=== PATIENT | female | born 1955 | race American Indian/Alaskan Native ===

== ENCOUNTER 2016-05-12 16:36 | Emergency (ER) | payer BC ==
[2016-05-12] MEDS ORDERED: ZOFRAN ODT PO ONE (16:48)
--- NOTE | 2016-05-12 16:51 | Emergency Department Report ---
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 PT states while at work last night she began to have n/v. pt states her stomach is sore from throwing up. PT has not tried to treat symptoms [employer] - ROS Review of Systems: + n/v pt denies abd pain, but states abd is sore pt denies hx of allergies - Exam Physical Exam: PT looks well, non toxic Pt's abd is soft and non tender at this time. pt has a steady gait and gcs 15 MSE screening note: Focused history and physical exam performed. Due to findings the following was ordered: labs, meds ED Disposition for MSE Condition: Stable
[2016-05-12 17:28] LABS: Basophils % (Auto) 0.9 % (0.0-1.8); Hematocrit 43.6 % (30.3-42.9); Mean Corpuscular HGB Conc 32 % (30-34); Mean Corpuscular Volume 81 fl (79-97); Platelet Count 233 K/mm3 (140-440); Red Blood Count 5.41 M/mm3 (3.65-5.03); Red Cell Distribution Width 14.9 % (13.2-15.2); White Blood Count 6.2 K/mm3 (4.5-11.0)
[2016-05-12 17:29] LABS: Mean Corpuscular Hemoglobin 26 pg (28-32)
[2016-05-12] MEDS ORDERED: NACL 0.9% 1000 ML 1,000 ML IV ONE (17:35)
[2016-05-12] MEDS ORDERED: ZOFRAN IV ONE (17:41)
[2016-05-12 17:50] LABS: Alanine Aminotransferase 31 units/L (7-56); Albumin 4.3 g/dL (3.9-5); Albumin/Globulin Ratio 1.2 %; Alkaline Phosphatase 110 units/L (35-129); Anion Gap 18 mmol/L; BUN/Creatinine Ratio 15.45; Bilirubin,Total 0.5 mg/dL (0.1-1.2); Blood Urea Nitrogen 17 mg/dL (7-17); Calcium 11.2 mg/dL (8.4-10.2); Carbon Dioxide 25 mmol/L (22-30); Chloride 100.8 mmol/L (98-107); Glucose 123 mg/dL (65-100); Lipase 21 units/L (13-60); Potassium 3.7 mmol/L (3.6-5.0); Sodium 140 mmol/L (137-145)
[2016-05-12] MEDS ORDERED: TORADOL ONE (17:57)
[2016-05-12] MEDS ORDERED: TORADOL IV ONE (18:16)
[2016-05-12] MEDS ORDERED: NORMODYNE IV ONE ×2 (19:11→19:58)
[2016-05-12] MEDS ORDERED: MORPHINE IV ONE (19:20)
--- NOTE | 2016-05-12 19:56 | Emergency Department Report ---
HPI - General Chief Complaint: Pain General Time Seen by Provider: 05/12/16 16:47 - HPI HPI: This is a 61-year-old Afro-[place] female presents the emergency department from home with complaint of generalized body aches, left ear pain, and nausea and vomiting this been going on since last night. The patient took some Motrin for her symptoms with some transient relief. Chest complains of some subjective fever with intermittent chills and sweats. No recent travel or sick contacts at home. Her primary care doctor is Dr. Wally Miranda. She has a history of coronary artery disease with [place] 2, hypertension, hypothyroidism. She denies any chest pain, shortness of breath, cough, diarrhea or rash. ED Past Medical Hx - Past Medical History Previous Medical History?: Yes Hx Hypertension: Yes Hx Heart Attack/AMI: Yes (2) Hx Renal Disease: Yes (renal insufficiency) Additional medical history: Hypothyroid - Surgical History Past Surgical History?: Yes Hx Coronary Stent: Yes Hx Cholecystectomy: Yes Additional Surgical History: c-sect. - Social History Smoking Status: Current Every Day Smoker Substance Use Type: Prescribed - Medications Home Medications: Home Medications Medication Instructions Recorded Confirmed Last Taken Type Potassium Chloride [K-Dur] 20 meq PO QDAY #30 tablet 08/25/13 05/12/16 1 Day Ago Rx Aspirin [Aspirin TAB] 325 mg PO QDAY #30 tablet 01/03/15 05/12/16 1 Day Ago Rx AtorvaSTATin [Lipitor] 20 mg PO QHS #30 tablet 01/03/15 05/12/16 1 Day Ago Rx Levothyroxine [Synthroid] 100 mcg PO DAILY@0600 #30 tablet 01/03/15 05/12/16 1 Day Ago Rx Metoprolol [Lopressor TAB] 100 mg PO TID #90 tablet 01/03/15 05/12/16 1 Day Ago Rx HYDROcodone/APAP 5-325 [[place] 1 each PO Q6HR PRN #10 tablet 05/12/16 Unknown Rx 5/325] Ondansetron [Zofran Odt] 4 mg PO Q8HR PRN #10 tab.rapdis 05/12/16 Unknown Rx ED Review of Systems ROS: Stated complaint: LT EAR PAIN/VOMITTING /BODY ACHES Other details as noted in HPI Comment: All other systems reviewed and negative Constitutional: chills, fever (subjective) Eyes: denies: eye pain, eye discharge, vision change ENT: denies: ear pain, throat pain Respiratory: denies: cough, shortness of breath, wheezing Cardiovascular: denies: chest pain, palpitations Gastrointestinal: nausea, vomiting Genitourinary: denies: urgency, dysuria, discharge Musculoskeletal: myalgia. denies: joint swelling Skin: denies: rash, lesions Neurological: denies: headache, weakness, paresthesias Physical Exam - Physical Exam Vital Signs: Vital Signs 05/12/16 05/12/16 05/12/16 16:53 17:22 17:30 Temperature 98.8 F Pulse Rate 89 79 73 Respiratory 20 15 14 Rate Blood Pressure 194/137 188/119 Blood Pressure [Right] O2 Sat by Pulse 98 98 Oximetry 05/12/16 05/12/16 05/12/16 17:35 17:40 17:50 Temperature Pulse Rate 81 80 75 Respiratory 18 16 18 Rate Blood Pressure 188/119 188/119 Blood Pressure 188/119 [Right] O2 Sat by Pulse 100 98 98 Oximetry 05/12/16 05/12/16 05/12/16 18:02 18:36 18:42 Temperature Pulse Rate 80 Respiratory 21 Rate Blood Pressure 188/119 188/119 184/102 Blood Pressure [Right] O2 Sat by Pulse 85 91 Oximetry 05/12/16 05/12/16 05/12/16 18:50 18:52 19:00 Temperature 99.2 F Pulse Rate 85 87 71 Respiratory 29 H 16 18 Rate Blood Pressure 185/106 184/102 Blood Pressure 184/102 [Right] O2 Sat by Pulse 99 86 Oximetry 05/12/16 05/12/16 05/12/16 19:10 19:20 19:30 Temperature Pulse Rate 88 95 H 93 H Respiratory 16 17 17 Rate Blood Pressure 184/102 181/115 195/123 Blood Pressure [Right] O2 Sat by Pulse 94 94 96 Oximetry Physical Exam: GENERAL: The patient is well-developed well-nourished. HEENT: Normocephalic. Atraumatic. Extraocular motions are intact. Patient has moist mucous membranes. Pupils equal reactive to light bilaterally. Oropharynx is clear. Normal bilateral tympanic membranes and external ear canals. NECK: Supple. Trachea is midline. CHEST/LUNGS: Clear to auscultation. There is no respiratory distress noted. HEART/CARDIOVASCULAR: Regular. There is no tachycardia. There is no gallop rub or murmur. ABDOMEN: Abdomen is soft, nontender. Patient has normal bowel sounds. There is no abdominal distention. SKIN: There is no rash. There is no edema. There is no diaphoresis. NEURO: The patient is awake, alert, and oriented. The patient is cooperative. The patient has no focal neurologic deficits. The patient has normal speech. MUSCULOSKELETAL: There is no tenderness or deformity. There is no limitation range of motion. There is no evidence of acute injury. ED Course Vital Signs 05/12/16 05/12/16 05/12/16 16:53 17:22 17:30 Temperature 98.8 F Pulse Rate 89 79 73 Respiratory 20 15 14 Rate Blood Pressure 194/137 188/119 Blood Pressure [Right] O2 Sat by Pulse 98 98 Oximetry 05/12/16 05/12/16 05/12/16 17:35 17:40 17:50 Temperature Pulse Rate 81 80 75 Respiratory 18 16 18 Rate Blood Pressure 188/119 188/119 Blood Pressure 188/119 [Right] O2 Sat by Pulse 100 98 98 Oximetry 05/12/16 05/12/16 05/12/16 18:02 18:36 18:42 Temperature Pulse Rate 80 Respiratory 21 Rate Blood Pressure 188/119 188/119 184/102 Blood Pressure [Right] O2 Sat by Pulse 85 91 Oximetry 05/12/16 05/12/16 05/12/16 18:50 18:52 19:00 Temperature 99.2 F Pulse Rate 85 87 71 Respiratory 29 H 16 18 Rate Blood Pressure 185/106 184/102 Blood Pressure 184/102 [Right] O2 Sat by Pulse 99 86 Oximetry 05/12/16 05/12/16 05/12/16 19:10 19:20 19:30 Temperature Pulse Rate 88 95 H 93 H Respiratory 16 17 17 Rate Blood Pressure 184/102 181/115 195/123 Blood Pressure [Right] O2 Sat by Pulse 94 94 96 Oximetry ED Medical Decision Making - Lab Data Result diagrams: 05/12/16 17:13 05/12/16 17:12 - EKG Data -: EKG Interpreted by Al EKG shows normal: sinus rhythm, axis (LAD), intervals, QRS complexes (anterior fascicular block, LVH), ST-T waves (T-wave flattening) Rate: normal - EKG Data When compared to previous EKG there are: previous EKG unavailable Interpretation: other (sinus rhythm, left axis deviation, left anterior fascicular block, LVH) - Medical Decision Making Is a 61-year-old Afro-[place] female who presents the emergency department with a one-day history of generalized body aches, nausea and vomiting. She denies any chest pain, shortness of breath, cough, fever but does have a slight headache at first. Patient was given some IV fluid resuscitation, Zofran and some Toradol. Upon reevaluation all of these symptoms have resolved except for the body aches. Patient still remains with some hypertensive issues. Required 2 doses of labetalol but eventually her blood pressure came down to a more reasonable level. Her EKG does not show any signs of ST elevation AZ or dysrhythmia. The patient otherwise has mostly unremarkable as. There is no leukocytosis, elect light abnormalities, renal insufficiency or glucose abnormalities. She has normal belly labs. Patient has good follow-up with primary care. She will go home with Zofran for nausea so she can stay hydrated and some pain medication for her bodyaches. She'll return to the ER with any worsening of her symptoms or any acute distress. - Differential Diagnosis influenza, food poisoning, viral syndrome Critical Care Time: No Critical care attestation.: If time is entered above; I have spent that time in minutes in the direct care of this critically ill patient, excluding procedure time. ED Disposition Clinical Impression: Otalgia of left ear, Body aches, Hypertensive urgency Nausea and vomiting Qualifiers: Vomiting type: unspecified Vomiting Intractability: non-intractable Qualified Code(s): R11.2 - Nausea with vomiting, unspecified Disposition: DISCHARGED TO HOME OR SELFCARE Is pt being admited?: No Condition: Stable Instructions: Hypertension (ED), Acute Nausea and Vomiting (ED), Dehydration ( ED) Additional Instructions: Please try to stay away from foods are high in salt and caffeinated products to help with your blood pressure. Keep a blood pressure log. Try to increase her oral rehydration. Follow up with your primary care doctor the next few days. Return to the emergency department with any worsening of your symptoms or any acute distress. You've been prescribed a medication that is sedating. Therefore this medication cannot be mixed with alcohol, or taken prior to driving, working, or being responsible for children. Prescriptions: HYDROcodone/APAP 5-325 [[place] 5/325] 1 each PO Q6HR PRN #10 tablet PRN Reason: Pain Ondansetron [Zofran Odt] 4 mg PO Q8HR PRN #10 tab.rapdis PRN Reason: Nausea Referrals: PRIMARY CARE, [Primary Care Provider] - 3-5 Days Time of Disposition: 20:17
[2016-05-12 20:39] VITALS: BP 175/118
== END 2016-05-12 20:48 | disposition home or self-care (01) ==
LOC: ED 16:36
DX: M79.1 Myalgia (principal); I10 Essential (primary) hypertension; H92.02 Otalgia, left ear; R11.2 Nausea with vomiting, unspecified; I25.2 Old myocardial infarction; N28.9 Disorder of kidney and ureter, unspecified; E03.9 Hypothyroidism, unspecified; F17.200 Nicotine dependence, unspecified, uncomplicated; Z79.82 Long term (current) use of aspirin
CPT/HCPCS: 36415; 80053; 83690; 84484; 85025; 87400; 93005; 93010; 96361; 96374; 96375; 96376; 99283; J1885; J2270; J2405; J7030

== ENCOUNTER 2016-05-13 06:25 | Emergency (ER) | payer BC ==
[2016-05-13 08:21] LABS: Basophils % (Auto) 0.5 % (0.0-1.8); Eosinophils % (Auto) 0.1 % (0.0-4.3); Hematocrit 41.4 % (30.3-42.9); Hemoglobin 13.3 gm/dl (10.1-14.3); Mean Corpuscular HGB Conc 32 % (30-34); Mean Corpuscular Volume 81 fl (79-97); Platelet Count 196 K/mm3 (140-440); Red Blood Count 5.14 M/mm3 (3.65-5.03); Red Cell Distribution Width 15.3 % (13.2-15.2); White Blood Count 8.8 K/mm3 (4.5-11.0)
[2016-05-13 08:24] LABS: Mean Corpuscular Hemoglobin 26 pg (28-32)
[2016-05-13 08:38] LABS: BUN/Creatinine Ratio 15.83; Calcium 10.9 mg/dL (8.4-10.2); Chloride 102.4 mmol/L (98-107); Potassium 3.3 mmol/L (3.6-5.0)
[2016-05-13] MEDS ORDERED: NACL 0.9% 1000 ML IV ONE (08:47)
[2016-05-13] MEDS ORDERED: DILAUDID IV ONE (08:47)
[2016-05-13] MEDS ORDERED: REGLAN IV ONE (08:47)
[2016-05-13 09:06] LABS: Bilirubin,Urine NEG (Negative); Blood,Urine NEG (Negative); Ketones,Urine NEG (Negative); Leukocyte Esterase,Urine NEG (Negative); Mucus,Urine FEW /HPF; Nitrite,Urine NEG (Negative); Urobilinogen,Urine < 2.0 mg/dL (<2.0)
[2016-05-13 09:20] LABS: Protein,Urine >500 mg/dL (Negative)
[2016-05-13 09:54] VITALS: BP 178/99
[2016-05-13] MEDS ORDERED: K-DUR PO ONE (10:34)
--- NOTE | 2016-05-13 10:57 | Emergency Department Report ---
HPI - General Chief Complaint: Nausea/Vomiting/Diarrhea Time Seen by Provider: 05/13/16 08:23 - HPI HPI: Chief complaint: Vomiting and back pain HPI: Patient is a 61-year-old female with history of chronic back pain radiating down her right leg who is in pain management who presents today with exacerbation of her back pain and nausea and vomiting. Patient was seen here yesterday and medicated with improvement states that when she went home she vomited all night and Zofran was no help. Patient has not had a fever or any diarrhea. Patient does complain of body aches. Mode of arrival: private car Source: Patient old chart Began: 2 days ago Duration: See above Context: See above Quality: Sharp Severity: 10 out of 10 Improved with: Nothing Worsened with: Movement and walking worsened since her pain eating worsens or vomiting Associated signs and symptoms: See above ED Past Medical Hx - Past Medical History Previous Medical History?: Yes Hx Hypertension: Yes Hx Heart Attack/AMI: Yes (2) Hx Renal Disease: Yes (renal insufficiency) Additional medical history: Hypothyroid - Surgical History Past Surgical History?: Yes Hx Coronary Stent: Yes Hx Cholecystectomy: Yes Additional Surgical History: c-sect. - Social History Smoking Status: Never Smoker Substance Use Type: None - Medications Home Medications: Home Medications Medication Instructions Recorded Confirmed Last Taken Type Potassium Chloride [K-Dur] 20 meq PO QDAY #30 tablet 08/25/13 05/12/16 1 Day Ago Rx Aspirin [Aspirin TAB] 325 mg PO QDAY #30 tablet 01/03/15 05/12/16 1 Day Ago Rx AtorvaSTATin [Lipitor] 20 mg PO QHS #30 tablet 01/03/15 05/12/16 1 Day Ago Rx Levothyroxine [Synthroid] 100 mcg PO DAILY@0600 #30 tablet 01/03/15 05/12/16 1 Day Ago Rx Metoprolol [Lopressor TAB] 100 mg PO TID #90 tablet 01/03/15 05/12/16 1 Day Ago Rx HYDROcodone/APAP 5-325 [[place] 1 each PO Q6HR PRN #10 tablet 05/12/16 Unknown Rx 5/325] Ondansetron [Zofran Odt] 4 mg PO Q8HR PRN #10 tab.rapdis 05/12/16 Unknown Rx Metoclopramide [Reglan] 10 mg PO Q6H PRN #10 tab 05/13/16 Unknown Rx ED Review of Systems ROS: Stated complaint: BODY PAIN Other details as noted in HPI ROS Constitutional: No fever ENT: No uri symptoms Cardiovascular: No chest pain Respiratory: No sob or cough GI: No diarrhea : No dysuria frequency or urgency, Skin: No rash Neuro: No focal weakness or numbness Psych: No depression Derek/lymph: No edema Physical Exam - Physical Exam Vital Signs: Vital Signs 05/13/16 05/13/16 05/13/16 06:48 06:50 06:52 Temperature Pulse Rate Respiratory Rate Blood Pressure 186/104 186/104 186/104 Blood Pressure [Left] O2 Sat by Pulse 97 96 Oximetry 05/13/16 05/13/16 05/13/16 06:54 06:56 06:58 Temperature Pulse Rate Respiratory Rate Blood Pressure 186/104 186/104 186/104 Blood Pressure [Left] O2 Sat by Pulse 96 98 98 Oximetry 05/13/16 05/13/16 05/13/16 07:00 07:02 07:04 Temperature Pulse Rate Respiratory Rate Blood Pressure 174/112 174/112 174/112 Blood Pressure [Left] O2 Sat by Pulse 96 100 98 Oximetry 05/13/16 05/13/16 05/13/16 07:06 07:08 07:10 Temperature Pulse Rate Respiratory Rate Blood Pressure 174/112 174/112 174/112 Blood Pressure [Left] O2 Sat by Pulse 100 98 96 Oximetry 05/13/16 05/13/16 05/13/16 07:14 08:02 08:04 Temperature 98.2 F Pulse Rate 97 H Respiratory 22 Rate Blood Pressure 186/104 188/106 188/106 Blood Pressure [Left] O2 Sat by Pulse 96 96 95 Oximetry 05/13/16 05/13/16 05/13/16 08:06 08:08 08:10 Temperature Pulse Rate Respiratory Rate Blood Pressure 188/106 188/106 188/106 Blood Pressure [Left] O2 Sat by Pulse 94 94 94 Oximetry 05/13/16 05/13/16 05/13/16 08:12 08:14 08:16 Temperature Pulse Rate Respiratory Rate Blood Pressure 188/106 188/106 188/106 Blood Pressure [Left] O2 Sat by Pulse 94 96 97 Oximetry 05/13/16 05/13/16 05/13/16 08:18 08:20 08:22 Temperature Pulse Rate Respiratory Rate Blood Pressure 188/106 188/106 188/106 Blood Pressure [Left] O2 Sat by Pulse 98 98 98 Oximetry 05/13/16 05/13/16 05/13/16 08:23 08:33 08:34 Temperature Pulse Rate Respiratory Rate Blood Pressure 188/106 200/104 200/104 Blood Pressure [Left] O2 Sat by Pulse 99 99 99 Oximetry 05/13/16 05/13/16 05/13/16 08:36 08:38 08:40 Temperature Pulse Rate Respiratory Rate Blood Pressure 200/104 200/104 200/104 Blood Pressure [Left] O2 Sat by Pulse 99 94 97 Oximetry 05/13/16 05/13/16 05/13/16 08:42 08:44 08:46 Temperature Pulse Rate Respiratory Rate Blood Pressure 200/104 200/104 200/104 Blood Pressure [Left] O2 Sat by Pulse 98 97 97 Oximetry 05/13/16 05/13/16 05/13/16 08:48 08:50 08:52 Temperature Pulse Rate Respiratory Rate Blood Pressure 200/104 200/104 200/104 Blood Pressure [Left] O2 Sat by Pulse 99 96 98 Oximetry 05/13/16 05/13/16 05/13/16 08:54 08:56 08:58 Temperature Pulse Rate Respiratory Rate Blood Pressure 200/104 200/104 200/104 Blood Pressure [Left] O2 Sat by Pulse 95 98 99 Oximetry 05/13/16 05/13/16 05/13/16 09:00 09:02 09:04 Temperature Pulse Rate 105 H Respiratory Rate Blood Pressure 205/104 205/104 205/104 Blood Pressure 205/104 [Left] O2 Sat by Pulse 95 99 97 Oximetry 05/13/16 05/13/16 05/13/16 09:06 09:08 09:10 Temperature Pulse Rate Respiratory Rate Blood Pressure 205/104 205/104 205/104 Blood Pressure [Left] O2 Sat by Pulse 92 94 82 L Oximetry 05/13/16 05/13/16 05/13/16 09:12 09:14 09:16 Temperature Pulse Rate Respiratory Rate Blood Pressure 205/104 205/104 205/104 Blood Pressure [Left] O2 Sat by Pulse 86 92 91 Oximetry 05/13/16 05/13/16 05/13/16 09:18 09:20 09:22 Temperature Pulse Rate Respiratory Rate Blood Pressure 200/104 200/104 200/104 Blood Pressure [Left] O2 Sat by Pulse 90 90 90 Oximetry 05/13/16 05/13/16 05/13/16 09:24 09:26 09:28 Temperature Pulse Rate Respiratory Rate Blood Pressure 200/104 200/104 200/104 Blood Pressure [Left] O2 Sat by Pulse 91 91 92 Oximetry 05/13/16 05/13/16 05/13/16 09:30 09:32 09:34 Temperature Pulse Rate Respiratory Rate Blood Pressure 203/123 203/123 203/123 Blood Pressure [Left] O2 Sat by Pulse 90 93 92 Oximetry 05/13/16 05/13/16 05/13/16 09:36 09:38 09:40 Temperature Pulse Rate Respiratory Rate Blood Pressure 203/123 203/123 203/123 Blood Pressure [Left] O2 Sat by Pulse 96 90 90 Oximetry 05/13/16 05/13/16 05/13/16 09:42 09:43 09:44 Temperature Pulse Rate Respiratory 18 Rate Blood Pressure 203/123 203/123 Blood Pressure [Left] O2 Sat by Pulse 94 99 90 Oximetry 05/13/16 09:45 Temperature Pulse Rate Respiratory Rate Blood Pressure 178/99 Blood Pressure [Left] O2 Sat by Pulse 95 Oximetry Physical Exam: GENERAL: The patient is well-developed well-nourished . HEENT: Normocephalic. Atraumatic. Extraocular motions are intact. Patient has moist mucous membranes. NECK: Supple. No meningitic signs are noted. There is no adenopathy noted. CHEST/LUNGS: Clear to auscultation. There is no respiratory distress noted. HEART/CARDIOVASCULAR: Regular. There is no tachycardia. There is no gallop rub or murmur. ABDOMEN: Abdomen is soft, nontender. Patient has normal bowel sounds. There is no abdominal distention. SKIN: There is no rash. There is no edema. There is no diaphoresis. NEURO: The patient is awake, alert, and oriented. The patient is cooperative. The patient has no focal neurologic deficits. The patient has normal speech. MUSCULOSKELETAL: There is tenderness to right buttocks into the right lateral thigh. There is no limitation range of motion. There is no evidence of acute injury. ED Course Vital Signs 05/13/16 05/13/16 05/13/16 06:48 06:50 06:52 Temperature Pulse Rate Respiratory Rate Blood Pressure 186/104 186/104 186/104 Blood Pressure [Left] O2 Sat by Pulse 97 96 Oximetry 05/13/16 05/13/16 05/13/16 06:54 06:56 06:58 Temperature Pulse Rate Respiratory Rate Blood Pressure 186/104 186/104 186/104 Blood Pressure [Left] O2 Sat by Pulse 96 98 98 Oximetry 05/13/16 05/13/16 05/13/16 07:00 07:02 07:04 Temperature Pulse Rate Respiratory Rate Blood Pressure 174/112 174/112 174/112 Blood Pressure [Left] O2 Sat by Pulse 96 100 98 Oximetry 05/13/16 05/13/16 05/13/16 07:06 07:08 07:10 Temperature Pulse Rate Respiratory Rate Blood Pressure 174/112 174/112 174/112 Blood Pressure [Left] O2 Sat by Pulse 100 98 96 Oximetry 05/13/16 05/13/16 05/13/16 07:14 08:02 08:04 Temperature 98.2 F Pulse Rate 97 H Respiratory 22 Rate Blood Pressure 186/104 188/106 188/106 Blood Pressure [Left] O2 Sat by Pulse 96 96 95 Oximetry 05/13/16 05/13/16 05/13/16 08:06 08:08 08:10 Temperature Pulse Rate Respiratory Rate Blood Pressure 188/106 188/106 188/106 Blood Pressure [Left] O2 Sat by Pulse 94 94 94 Oximetry 05/13/16 05/13/16 05/13/16 08:12 08:14 08:16 Temperature Pulse Rate Respiratory Rate Blood Pressure 188/106 188/106 188/106 Blood Pressure [Left] O2 Sat by Pulse 94 96 97 Oximetry 05/13/16 05/13/16 05/13/16 08:18 08:20 08:22 Temperature Pulse Rate Respiratory Rate Blood Pressure 188/106 188/106 188/106 Blood Pressure [Left] O2 Sat by Pulse 98 98 98 Oximetry 05/13/16 05/13/16 05/13/16 08:23 08:33 08:34 Temperature Pulse Rate Respiratory Rate Blood Pressure 188/106 200/104 200/104 Blood Pressure [Left] O2 Sat by Pulse 99 99 99 Oximetry 05/13/16 05/13/16 05/13/16 08:36 08:38 08:40 Temperature Pulse Rate Respiratory Rate Blood Pressure 200/104 200/104 200/104 Blood Pressure [Left] O2 Sat by Pulse 99 94 97 Oximetry 05/13/16 05/13/16 05/13/16 08:42 08:44 08:46 Temperature Pulse Rate Respiratory Rate Blood Pressure 200/104 200/104 200/104 Blood Pressure [Left] O2 Sat by Pulse 98 97 97 Oximetry 05/13/16 05/13/16 05/13/16 08:48 08:50 08:52 Temperature Pulse Rate Respiratory Rate Blood Pressure 200/104 200/104 200/104 Blood Pressure [Left] O2 Sat by Pulse 99 96 98 Oximetry 05/13/16 05/13/16 05/13/16 08:54 08:56 08:58 Temperature Pulse Rate Respiratory Rate Blood Pressure 200/104 200/104 200/104 Blood Pressure [Left] O2 Sat by Pulse 95 98 99 Oximetry 05/13/16 05/13/16 05/13/16 09:00 09:02 09:04 Temperature Pulse Rate 105 H Respiratory Rate Blood Pressure 205/104 205/104 205/104 Blood Pressure 205/104 [Left] O2 Sat by Pulse 95 99 97 Oximetry 05/13/16 05/13/16 05/13/16 09:06 09:08 09:10 Temperature Pulse Rate Respiratory Rate Blood Pressure 205/104 205/104 205/104 Blood Pressure [Left] O2 Sat by Pulse 92 94 82 L Oximetry 05/13/16 05/13/16 05/13/16 09:12 09:14 09:16 Temperature Pulse Rate Respiratory Rate Blood Pressure 205/104 205/104 205/104 Blood Pressure [Left] O2 Sat by Pulse 86 92 91 Oximetry 05/13/16 05/13/16 05/13/16 09:18 09:20 09:22 Temperature Pulse Rate Respiratory Rate Blood Pressure 200/104 200/104 200/104 Blood Pressure [Left] O2 Sat by Pulse 90 90 90 Oximetry 05/13/16 05/13/16 05/13/16 09:24 09:26 09:28 Temperature Pulse Rate Respiratory Rate Blood Pressure 200/104 200/104 200/104 Blood Pressure [Left] O2 Sat by Pulse 91 91 92 Oximetry 05/13/16 05/13/16 05/13/16 09:30 09:32 09:34 Temperature Pulse Rate Respiratory Rate Blood Pressure 203/123 203/123 203/123 Blood Pressure [Left] O2 Sat by Pulse 90 93 92 Oximetry 05/13/16 05/13/16 05/13/16 09:36 09:38 09:40 Temperature Pulse Rate Respiratory Rate Blood Pressure 203/123 203/123 203/123 Blood Pressure [Left] O2 Sat by Pulse 96 90 90 Oximetry 05/13/16 05/13/16 05/13/16 09:42 09:43 09:44 Temperature Pulse Rate Respiratory 18 Rate Blood Pressure 203/123 203/123 Blood Pressure [Left] O2 Sat by Pulse 94 99 90 Oximetry 05/13/16 09:45 Temperature Pulse Rate Respiratory Rate Blood Pressure 178/99 Blood Pressure [Left] O2 Sat by Pulse 95 Oximetry - Reevaluation(s) Reevaluation #1: 05/13/16 Patient medicated with Reglan, Dilaudid, saline with significant improvement. ED Medical Decision Making - Lab Data Result diagrams: 05/13/16 07:51 05/13/16 07:51 Critical care attestation.: If time is entered above; I have spent that time in minutes in the direct care of this critically ill patient, excluding procedure time. ED Disposition Clinical Impression: Nausea and vomiting Qualifiers: Vomiting type: unspecified Vomiting Intractability: non-intractable Qualified Code(s): R11.2 - Nausea with vomiting, unspecified Chronic pain Qualifiers: Chronic pain type: other chronic pain Qualified Code(s): G89.29 - Other chronic pain Sciatica Qualifiers: Laterality: right Qualified Code(s): M54.31 - Sciatica, right side Disposition: DISCHARGED TO HOME OR SELFCARE Is pt being admited?: No Does the pt Need Aspirin: No Condition: Stable Instructions: Acute Nausea and Vomiting (ED), Chronic Back Pain (ED) Prescriptions: Metoclopramide [Reglan] 10 mg PO Q6H PRN #10 tab PRN Reason: Nausea And Vomiting Referrals: PRIMARY CARE,MD [Primary Care Provider] - 3-5 Days Time of Disposition: 10:58
== END 2016-05-13 11:37 | disposition home or self-care (01) ==
LOC: ED 06:25
DX: R11.2 Nausea with vomiting, unspecified (principal); M54.31 Sciatica, right side; G89.29 Other chronic pain; I10 Essential (primary) hypertension; I25.2 Old myocardial infarction; N28.9 Disorder of kidney and ureter, unspecified; E03.9 Hypothyroidism, unspecified; Z95.9 Presence of cardiac and vascular implant and graft, unspecified; Z90.49 Acquired absence of other specified parts of digestive tract; Z79.82 Long term (current) use of aspirin; Z91.048 Other nonmedicinal substance allergy status
CPT/HCPCS: 36415; 80048; 81001; 82962; 85025; 96361; 96374; 96375; 99284; J1170; J2765; J7030

== ENCOUNTER 2017-02-12 23:49 | Emergency (ER) | payer BC ==
[2017-02-12 23:58] VITALS: BP 134/86
[2017-02-13] MEDS ORDERED: COLCRYS PO ONE (00:08)
--- NOTE | 2017-02-13 00:26 | Emergency Department Report ---
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 She has a history of this and says it feels similar. She is requesting some colchicine to help with her discomfort. The patient has previous history of coronary artery disease with [place], some transient renal insufficiency and has hypertension. Her primary care physician is Dr. Wally Fox. She has not taken anything for her toe and/or foot discomfort so far. She feels that the foot is slightly swollen but she denies any skin color change. ED Past Medical Hx - Past Medical History Hx Hypertension: Yes Hx Heart Attack/AMI: Yes (2) Hx Renal Disease: Yes (renal insufficiency) Additional medical history: Hypothyroid - Surgical History Hx Coronary Stent: Yes Hx Cholecystectomy: Yes Additional Surgical History: c-sect. - Social History Smoking Status: Never Smoker Substance Use Type: None - Medications Home Medications: Home Medications Medication Instructions Recorded Confirmed Last Taken Type Potassium Chloride [K-Dur] 20 meq PO QDAY #30 tablet 08/25/13 05/12/16 1 Day Ago Rx ~05/11/16 Aspirin [Aspirin TAB] 325 mg PO QDAY #30 tablet 01/03/15 05/12/16 1 Day Ago Rx ~05/11/16 AtorvaSTATin [Lipitor] 20 mg PO QHS #30 tablet 01/03/15 05/12/16 1 Day Ago Rx ~05/11/16 Levothyroxine [Synthroid] 100 mcg PO DAILY@0600 #30 tablet 01/03/15 05/12/16 1 Day Ago Rx ~05/11/16 Metoprolol [Lopressor TAB] 100 mg PO TID #90 tablet 01/03/15 05/12/16 1 Day Ago Rx ~05/11/16 HYDROcodone/APAP 5-325 [[place] 1 each PO Q6HR PRN #10 tablet 05/12/16 Unknown Rx 5/325] Ondansetron [Zofran Odt] 4 mg PO Q8HR PRN #10 tab.rapdis 05/12/16 Unknown Rx Metoclopramide [Reglan] 10 mg PO Q6H PRN #10 tab 05/13/16 Unknown Rx ED Review of Systems ROS: Stated complaint: FOOT PAIN Other details as noted in HPI Comment: All other systems reviewed and negative Constitutional: denies: chills, fever Eyes: denies: eye pain, eye discharge, vision change ENT: denies: ear pain, throat pain Respiratory: denies: cough, shortness of breath, wheezing Cardiovascular: denies: chest pain, palpitations Genitourinary: denies: urgency, dysuria, discharge Musculoskeletal: arthralgia. denies: back pain Skin: denies: rash, lesions Neurological: denies: headache, weakness, paresthesias Physical Exam - Physical Exam Vital Signs: Vital Signs 02/12/17 02/12/17 23:54 23:58 Temperature 98.3 F Pulse Rate 73 Respiratory 14 14 Rate Blood Pressure 134/86 Blood Pressure 134/86 [Left] O2 Sat by Pulse 96 96 Oximetry Physical Exam: GENERAL: The patient is well-developed well-nourished. HENT: Normocephalic. Atraumatic. Patient has moist mucous membranes. EYES: Extraocular motions are intact. NECK: Supple. Trachea is midline. CHEST/LUNGS: Clear to auscultation. There is no respiratory distress noted. HEART/CARDIOVASCULAR: Regular. There is no tachycardia. There is no murmur. ABDOMEN: Abdomen is soft, nontender. SKIN: There is some mild warmth and mild nonpitting swelling to the left foot but no areas of erythema or fluctuance. NEURO: The patient is awake, alert, and oriented. The patient is cooperative. The patient has no focal neurologic deficits. The patient has normal speech. MUSCULOSKELETAL: Tenderness to palpation to the left great toe and dorsal foot.. There is no limitation range of motion. ED Course Vital Signs 02/12/17 02/12/17 23:54 23:58 Temperature 98.3 F Pulse Rate 73 Respiratory 14 14 Rate Blood Pressure 134/86 Blood Pressure 134/86 [Left] O2 Sat by Pulse 96 96 Oximetry ED Medical Decision Making - Medical Decision Making This patient has a history of gout and feels it is consistent with a gout flareup. 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 She has good follow-up with primary care. She was given a 1.2 mg dose of the colchicine and encouraged to follow up with PCP. She'll return with any worsening of her symptoms or any acute distress. - Differential Diagnosis gout, osteoarthritis, rheumatoid arthritis, plantar fasciitis Critical Care Time: No Critical care attestation.: If time is entered above; I have spent that time in minutes in the direct care of this critically ill patient, excluding procedure time. ED Disposition Clinical Impression: Gout Qualifiers: Gout site: foot Gout etiology: unspecified cause Chronicity: acute Laterality: left Qualified Code(s): M10.9 - Gout, unspecified Disposition: TO HOME OR SELFCARE Is pt being admited?: No Condition: Stable Instructions: Acute Gouty Arthritis (ED) Additional Instructions: Please follow-up with your primary care physician, Dr. Fox, as soon as possible regarding your gout flareup. Return to the emergency Department with any worsening of your symptoms or any acute distress. Referrals: FLACO FOX MD [Referring] - 3-5 Days Time of Disposition: 00:46
== END 2017-02-13 00:49 | disposition home or self-care (01) ==
LOC: ED 23:49
DX: M10.9 Gout, unspecified (principal); I10 Essential (primary) hypertension; I25.2 Old myocardial infarction
CPT/HCPCS: 99282

== ENCOUNTER 2020-06-16 16:44 | Emergency (ER) | payer BC, MEDICARE ==
[2020-06-16 16:49] VITALS: BP 187/111
== END 2020-06-16 18:48 | disposition left against medical advice (07) ==
LOC: ED 16:44
DX: G43.909 Migraine, unspecified, not intractable, without status migrainosus (principal); Z53.21 Procedure and treatment not carried out due to patient leaving prior to being seen by health care provider

== ENCOUNTER 2021-08-10 08:11 | Inpatient (IN) | payer MEDICARE ==
--- NOTE | 2021-08-10 09:23 | XRay Report ---
CHEST 2 VIEWS INDICATION / CLINICAL INFORMATION: CP. COMPARISON: 08/06/21 FINDINGS: SUPPORT DEVICES: None. HEART / MEDIASTINUM: Heart is upper normal size. Thoracic aorta is tortuous. No change. LUNGS / PLEURA: No significant pulmonary or pleural abnormality. No pneumothorax. ADDITIONAL FINDINGS: No significant additional findings. IMPRESSION: 1. No acute findings. No change. Signer Name: Wicho South MD Signed: 08/10/2021 9:18 AM Workstation Name: [id number]
[2021-08-10] MEDS ORDERED: fentaNYL 100 MCG/2 ML INJ IV ONE (11:53)
[2021-08-10] MEDS ORDERED: ONDANSETRON 4 MG/2 ML INJ IV ONE (11:53)
[2021-08-10] MEDS ORDERED: ASPIRIN 325 MG TAB PO ONE (11:54)
[2021-08-10] MEDS ORDERED: cloNIDine 0.2 MG TAB PO ONE (11:55)
--- NOTE | 2021-08-10 12:12 | Emergency Department Report ---
HPI - General Chief Complaint: Chest Pain Time Seen by Provider: 08/10/21 11:33 - HPI HPI: Room 7 The patient is a 66-year-old female present with a chief complaint of chest pain and right hip pain. The patient was admitted to this hospital 3 days ago for chest pain where she underwent a negative perfusion scan. Patient states her pain has not resolved since her discharge. Patient states she continues to have intermittent substernal chest pain described as a "hurt" in nature associated with nausea and some shortness of breath. Patient denies vomiting but admits to some pleurisy. Patient also complains of pain in her right hip from sciatica. Patient denies history of cough and states she has been fully vaccinated against COVID receiving 3 doses ED Past Medical Hx - Past Medical History Previous Medical History?: Yes Hx Hypertension: Yes Hx Heart Attack/AMI: Yes (2010, 2011) Hx Renal Disease: Yes (renal insufficiency) Additional medical history: fibroids. Gastric ulcer. Hyperlipidemia - Surgical History Past Surgical History?: Yes Hx Coronary Stent: Yes (x2) Hx Cholecystectomy: Yes Additional Surgical History: - Family History Family history: no significant - Social History Smoking Status: Former Smoker Substance Use Type: None - Medications Home Medications: Home Medications Medication Instructions Recorded Confirmed Last Taken Type HYDROcodone/APAP 5-325 [[place] 1 each PO Q6HR PRN #10 tablet 05/12/16 11/19/17 12/02/17 05:30 Rx 5-325 mg TAB] AtorvaSTATin [Lipitor] 80 mg PO QHS 11/19/17 12/02/17 12/01/17 History Levothyroxine [Synthroid] 100 mcg PO DAILY 11/19/17 11/19/17 12/02/17 05:30 History Metoprolol [Lopressor TAB] 100 mg PO BID 11/19/17 11/19/17 12/02/17 05:30 History cloNIDine HCL [Catapres] 0.3 mg PO BID #30 tablet 02/27/18 Unknown Rx Diclofenac 1% [Diclofenac 1% 1 applic TP QID PRN #1 tube 08/18/19 Unknown Rx topical gel] Aspirin EC [Halfprin EC] 81 mg PO QDAY 30 Days #30 tablet 12/23/20 Unknown Rx Clopidogrel [Plavix] 75 mg PO QDAY 30 Days #30 tablet 12/23/20 Unknown Rx Gabapentin 300 mg PO TID 12/23/20 12/23/20 12/19/20 History amLODIPine 10 mg PO QDAY 30 Days #30 tablet 12/23/20 Unknown Rx hydrALAZINE [Apresoline TAB] 50 mg PO BID 30 Days #30 tablet 12/23/20 Unknown Rx ISOSORBIDE MONOnitrate [Imdur ER] 30 mg PO QDAY #30 tablet 08/08/21 Unknown Rx Spironolactone [Aldactone] 25 mg PO QDAY #30 tablet 08/08/21 Unknown Rx ED Review of Systems ROS: Stated complaint: PAIN/HIP/DISCHARGED 4 DAYS Other details as noted in HPI Constitutional: fever (Subjective) Eyes: denies: eye pain ENT: denies: throat pain Respiratory: shortness of breath Cardiovascular: chest pain Endocrine: no symptoms reported Gastrointestinal: nausea. denies: vomiting Genitourinary: denies: dysuria Musculoskeletal: denies: back pain Neurological: denies: headache Physical Exam - Physical Exam Vital Signs: Vital Signs 08/10/21 08/10/21 08/10/21 08:15 08:20 11:46 Temperature 98.4 F Pulse Rate 110 H 109 H Respiratory 16 19 Rate Blood Pressure 190/128 195/124 [Right] O2 Sat by Pulse 99 94 Oximetry Physical Exam: GENERAL: The patient is well-developed well-nourished female lying on stretcher appearing to be in moderate discomfort HEENT: Normocephalic. Atraumatic. Extraocular motions are intact. Patient has moist mucous membranes. NECK: Supple. Trachea midline CHEST/LUNGS: Clear to auscultation. There is no respiratory distress noted. HEART/CARDIOVASCULAR: Regular. There is no tachycardia. There is no gallop rub or murmur. ABDOMEN: Abdomen is soft, nontender. Patient has normal bowel sounds. There is no abdominal distention. SKIN: There is no rash. There is no edema. There is no diaphoresis. NEURO: The patient is awake, alert, and oriented. The patient is cooperative. The patient has no focal neurologic deficits. The patient has normal speech. GCS 15 MUSCULOSKELETAL: There is no evidence of acute injury. ED Course Vital Signs 08/10/21 08/10/21 08/10/21 08:15 08:20 11:46 Temperature 98.4 F Pulse Rate 110 H 109 H Respiratory 16 19 Rate Blood Pressure 190/128 195/124 [Right] O2 Sat by Pulse 99 94 Oximetry - Reevaluation(s) Reevaluation #1: 08/10/21 14:00 Patient comfortable status post pain meds - Consultations Consultation #1: 08/10/21 12:12 Cardiology paged 08/10/21 12:26 Case discussed with administrative dietitian Dr. Rico- states pain is not cardiac in nature. 08/10/21 14:05 Lab results and EKG shared with administrative dietitian Dr Rico- recommends patient be admitted to the hospital, initiate heparin drip, Nitropaste Lopressor 50 mg twice daily, aspirin and statin ED Medical Decision Making - Lab Data Result diagrams: 08/10/21 Unknown 08/10/21 10:56 Laboratory Tests 08/10/21 08/10/21 08/10/21 10:56 14:29 Unknown WBC 7.7 RBC 4.97 Hgb 13.6 Hct 41.0 MCV 83 MCH 27 L MCHC 33 RDW 14.1 Plt Count 190 Lymph % (Auto) 7.5 L [place] % (Auto) 9.8 H Eos % (Auto) 0.2 Baso % (Auto) 0.4 Lymph # (Auto) 0.6 L [place] # (Auto) 0.8 Eos # (Auto) 0.0 Baso # (Auto) 0.0 Seg Neutrophils % 82.1 H Seg Neutrophils # 6.3 PT INR APTT D-Dimer Sodium 134 L Potassium 3.2 L Chloride 94.4 L Carbon Dioxide 18 L Anion Gap 25 BUN 36 H Creatinine 1.7 H Estimated GFR 36 BUN/Creatinine Ratio 21 Glucose 115 H Calcium 10.7 H Total Bilirubin 0.60 AST 67 H ALT 124 H Alkaline Phosphatase 151 H Troponin T 0.088 H D 0.095 H Total Protein 8.1 Albumin 4.3 Albumin/Globulin Ratio 1.1 Triglycerides 102 Cholesterol 203 H LDL Cholesterol Direct 104 HDL Cholesterol 73 H Cholesterol/HDL Ratio 2.78 08/10/21 Unknown WBC RBC Hgb Hct MCV MCH MCHC RDW Plt Count Lymph % (Auto) [place] % (Auto) Eos % (Auto) Baso % (Auto) Lymph # (Auto) [place] # (Auto) Eos # (Auto) Baso # (Auto) Seg Neutrophils % Seg Neutrophils # PT 14.1 INR 0.98 APTT 27.5 D-Dimer 1104.65 H Sodium Potassium Chloride Carbon Dioxide Anion Gap BUN Creatinine Estimated GFR BUN/Creatinine Ratio Glucose Calcium Total Bilirubin AST ALT Alkaline Phosphatase Troponin T Total Protein Albumin Albumin/Globulin Ratio Triglycerides Cholesterol LDL Cholesterol Direct HDL Cholesterol Cholesterol/HDL Ratio - EKG Data -: EKG Interpreted by Me EKG shows normal: sinus rhythm Rate: tachycardia (109 bpm) - EKG Data When compared to previous EKG there are: changes noted Interpretation: nonspecific ST-T wave uzma (T wave inversions in leads II, 3, aVF which are new when compared to previous EKG dated 08/08/2021), LVH - Radiology Data Radiology results: report reviewed (Chest x-ray, VQ scan), image reviewed (Chest x-ray) interpreted by me: Chest x-ray-no definite focal infiltrates, no pneumothorax [facility] [address] [place] [address] XRay Report Signed Patient: YOEL ORO MR#: [id number] : 1955 Acct:[id number] Age/Sex: 66 / F ADM Date: 08/10/21 Loc: ED Attending Dr: Ordering Physician: ED MD CARISSA Date of Service: 08/10/21 Procedure(s): XR chest routine 2V Accession Number(s): [id number] cc: ED DOCMD Fluoro Time In Minutes: CHEST 2 VIEWS INDICATION / CLINICAL INFORMATION: CP. COMPARISON: 08/06/21 FINDINGS: SUPPORT DEVICES: None. HEART / MEDIASTINUM: Heart is upper normal size. Thoracic aorta is tortuous. No change. LUNGS / PLEURA: No significant pulmonary or pleural abnormality. No pneumothorax. ADDITIONAL FINDINGS: No significant additional findings. IMPRESSION: 1. No acute findings. No change. Signer Name: Wicho South MD Signed: 08/10/2021 9:18 AM Workstation Name: [id number] Transcribed By: DT Dictated By: Gaurav South MD Electronically Authenticated By: Gaurav South MD Signed Date/Time: 08/10/21917 DD/ 7 TD/TT: VQ scan (read by radiologist)-low probability for pulmonary embolus. - Differential Diagnosis ACS, PE, hypertensive urgency, GERD Critical care attestation.: If time is entered above; I have spent that time in minutes in the direct care of this critically ill patient, excluding procedure time. ED Disposition Clinical Impression: Chest pain, NSTEMI (non-ST elevated myocardial infarction), Hypokalemia Disposition: ADMITTED INPATIENT Is pt being admited?: Yes Does the pt Need Aspirin: Yes Condition: Serious Instructions: Nonspecific Chest Pain, Adult Time of Disposition: 17:27 (Care transferred to hospitalist (Dr. Syed)) Heart Score - HEART Score History: Highly suspicious EKG: Non-specific Age: > 65 Risk factors: 1-2 risk factors Troponin: 1-3x normal limit HEART Score: 7 - EKG Read Time Time EKG Completed: 08:24 EKG Read Time: 08:27
--- NOTE | 2021-08-10 12:21 | XRay Report ---
CHEST 1 VIEW 08/10/2021 12:00 PM INDICATION / CLINICAL INFORMATION: chest pain. COMPARISON: 08/10/21 8:51 AM FINDINGS: SUPPORT DEVICES: None. HEART / MEDIASTINUM: Stable. LUNGS / PLEURA: No significant pulmonary or pleural abnormality. No pneumothorax. ADDITIONAL FINDINGS: No significant additional findings. IMPRESSION: 1. No acute findings. No change. Signer Name: Wicho South MD Signed: 08/10/2021 12:17 PM Workstation Name: [id number]
[2021-08-10 13:12] LABS: Albumin 4.3 g/dL (3.9-5); Calcium 10.7 mg/dL (8.4-10.2)
[2021-08-10] MEDS ORDERED: POTASSIUM CHLORIDE ER 20 MEQ TAB PO ONE (13:53)
[2021-08-10] MEDS ORDERED: HYDROmorphone 1 MG/1 ML INJ IV ONE (14:00)
[2021-08-10] MEDS ORDERED: NITROGLYCERIN 2% OINT 1 GM TP ONE (14:00)
[2021-08-10] MEDS ORDERED: HEPARIN 10,000 UNITS/10 ML VIAL IV ONE (14:03)
[2021-08-10] MEDS ORDERED: HEPARIN 10,000 UNITS/10 ML VIAL IV PRN ×2 (14:03→15:00)
[2021-08-10 14:10] LABS: Chol/HDL Ratio 2.78 %
[2021-08-10] MEDS ORDERED: HEPARIN/ 0.45% NACL DRIP 25,000 UNIT/500 ML BAG IV SCH (14:30)
[2021-08-10 14:37] LABS: Basophils % (Auto) 0.4 % (0.0-1.8); Eosinophils % (Auto) 0.2 % (0.0-4.3); Hemoglobin 13.6 gm/dl (10.1-14.3); Lymphocytes # (Auto) 0.6 K/mm3 (1.2-5.4); Lymphocytes % (Auto) 7.5 % (13.4-35.0); Mean Corpuscular HGB Conc 33 % (30-34); Mean Corpuscular Volume 83 fl (79-97); Monocytes # (Auto) 0.8 K/mm3 (0.0-0.8); Monocytes % (Auto) 9.8 % (0.0-7.3); Platelet Count 190 K/mm3 (140-440); Red Blood Count 4.97 M/mm3 (3.65-5.03); Red Cell Distribution Width 14.1 % (13.2-15.2)
[2021-08-10 15:04] LABS: INR 0.98 (0.87-1.13)
[2021-08-10 15:05] LABS: Partial Thromboplastin Time 27.5 Sec. (24.2-36.6)
--- NOTE | 2021-08-10 15:34 | Consultation ---
History of Present Illness Consult date: 08/10/21 Requesting physician: RAFAELA CARIAS Consult reason: chest pain History of present illness: Pt is a 66-year-old AA female with a hx of [place], CAD s/p PCI of OM1 in 2010, dilated CMP, CKDIII/IV, malignant HTN, and h/o ICH who presented with complaints of chest pain x 1 day. Pt describes pain as substernal tightness without radiation. Occurred at rest. Associated with diaphoresis, lightheadedness, SOB, and nausea. Pt states pain was constant until she received pain meds in the ER. She is chest pain-free currently. Of note, pt was seen in consult during recent admission. She underwent Lexiscan stress MPI, which revealed no evidence of reversible ischemia. Tn now elevated borderline. ECG reveals new inferolateral T wave inversions. BP markedly elevated, SBP > 190mmHg upon assessment. No acute findings on CXR. Pt is followed in our office by Dr. Saji Fuentes. Her Regulator Operator is Dr. Canales. Cr at last discharge x 2 days ago was 1.5. Cr today is 1.7. Past History Past Medical History: acute [place], CAD, hypertension, hyperlipidemia, hypothyroidism, renal failure, other (ICH) Past Surgical History: PTCA. denies: CABG Social history: smoking (former). denies: alcohol abuse Family history: other (HF (mother & father)) Medications and Allergies Allergies Allergy/AdvReac Type Severity Reaction Status Date / Time blue dye Allergy Vomiting Verified 05/21/21 22:38 Iodinated Contrast Media Allergy Vomiting Verified 05/21/21 22:38 [Iodinated Contrast- Oral and IV Dye] VEIN DYE Allergy Vomiting Uncoded 05/21/21 22:38 Home Medications Medication Instructions Recorded Confirmed Last Taken Type HYDROcodone/APAP 5-325 [[place] 1 each PO Q6HR PRN #10 tablet 05/12/16 11/19/17 12/02/17 05:30 Rx 5-325 mg TAB] AtorvaSTATin [Lipitor] 80 mg PO QHS 11/19/17 12/02/17 12/01/17 History Levothyroxine [Synthroid] 100 mcg PO DAILY 11/19/17 11/19/17 12/02/17 05:30 History Metoprolol [Lopressor TAB] 100 mg PO BID 09/11/19/17 12/02/17 05:30 History cloNIDine HCL [Catapres] 0.3 mg PO BID #30 tablet 02/27/18 Unknown Rx Diclofenac 1% [Diclofenac 1% 1 applic TP QID PRN #1 tube 08/18/19 Unknown Rx topical gel] Aspirin EC [Halfprin EC] 81 mg PO QDAY 30 Days #30 tablet 12/23/20 Unknown Rx Clopidogrel [Plavix] 75 mg PO QDAY 30 Days #30 tablet 12/23/20 Unknown Rx Gabapentin 300 mg PO TID 12/23/20 12/23/20 12/19/20 History amLODIPine 10 mg PO QDAY 30 Days #30 tablet 12/23/20 Unknown Rx hydrALAZINE [Apresoline TAB] 50 mg PO BID 30 Days #30 tablet 12/23/20 Unknown Rx ISOSORBIDE MONOnitrate [Imdur ER] 30 mg PO QDAY #30 tablet 08/08/21 Unknown Rx Spironolactone [Aldactone] 25 mg PO QDAY #30 tablet 08/08/21 Unknown Rx Active Meds: Active Medications Heparin Sodium (Porcine) (Heparin 10,000 Units/10 Ml Vial) 2,800 unit IV Q6H PRN PRN Reason: Anti-Xa Assay<0.1 units/ml Heparin Sodium/Sodium Chloride (Heparin/ 0.45% Nacl-25,000 Unit/500 Ml) 25,000 unit in 500 mls @ 20 mls/hr IV TITRATE KALE; Protocol Sodium Chloride (Nacl 0.9% 500 Ml) 500 mls @ 50 mls/hr IV DIRECT KALE Stop: 08/11/21 01:59 Review of Systems Constitutional: sweats, no fever, no chills Ears, nose, mouth and throat: no nasal congestion, no sore throat Cardiovascular: chest pain, lightheadedness, shortness of breath, no orthopnea, no palpitations, no rapid/irregular heart beat, no edema, no syncope Respiratory: shortness of breath, no cough, no dyspnea on exertion Gastrointestinal: nausea, no abdominal pain, no vomiting Genitourinary Female: no dysuria Musculoskeletal: no myalgias Integumentary: no rash, no wounds Neurological: headaches, no numbness, no tingling, no seizures, no syncope, no vertigo Endocrine: no polydipsia, no polyuria Hematologic/Lymphatic: no easy bruising, no easy bleeding Allergic/Immunologic: no anaphylaxis Physical Examination Vital Signs Temp Pulse Resp Pulse Ox 98.4 F 110 H 16 99 08/10/21 08:15 08/10/21 08:15 08/10/21 08:15 08/10/21 08:15 General appearance: no acute distress HEENT: Positive: EOMI, Normocephaly Neck: Negative: JVD/HJR Cardiac: Positive: Reg Rate and Rhythm, S1/S2 Lungs: Positive: clear to auscultation Neuro: Positive: Grossly Intact Abdomen: Positive: Soft. Negative: Tender Skin: Negative: Rash Musculoskeletal: Normal Range of Motion, other (hip pain // sciatica) Extremities: Present: warm. Absent: edema Results 08/10/21 Unknown 08/10/21 10:56 Cardiac Enzymes 08/10/21 Range/Units 10:56 AST 67 H (5-40) units/L Coagulation 08/10/21 Range/Units Unknown PT 14.1 (12.2-14.9) Sec. INR 0.98 (0.87-1.13) APTT 27.5 (24.2-36.6) Sec. Lipids 08/10/21 Range/Units 10:56 Triglycerides 102 (2-149) mg/dL Cholesterol 203 H (50-199) mg/dL HDL Cholesterol 73 H (40-59) mg/dL Cholesterol/HDL Ratio 2.78 % CBC 08/10/21 Range/Units Unknown WBC 7.7 (4.5-11.0) K/mm3 RBC 4.97 (3.65-5.03) M/mm3 Hgb 13.6 (10.1-14.3) gm/dl Hct 41.0 (30.3-42.9) % Plt Count 190 (140-440) K/mm3 Lymph # (Auto) 0.6 L (1.2-5.4) K/mm3 [place] # (Auto) 0.8 (0.0-0.8) K/mm3 Eos # (Auto) 0.0 (0.0-0.4) K/mm3 Baso # (Auto) 0.0 (0.0-0.1) K/mm3 Comprehensive Metabolic Panel 08/10/21 Range/Units 10:56 Sodium 134 L (137-145) mmol/L Potassium 3.2 L (3.6-5.0) mmol/L Chloride 94.4 L (98-107) mmol/L Carbon Dioxide 18 L (22-30) mmol/L BUN 36 H (7-17) mg/dL Creatinine 1.7 H (0.6-1.2) mg/dL Glucose 115 H (65-100) mg/dL Calcium 10.7 H (8.4-10.2) mg/dL AST 67 H (5-40) units/L ALT 124 H (7-56) units/L Alkaline Phosphatase 151 H (35-129) units/L Total Protein 8.1 (6.3-8.2) g/dL Albumin 4.3 (3.9-5) g/dL - Imaging and Cardiology Echo: report reviewed Cardiac cath: report reviewed EKG: report reviewed, image reviewed Assessment and Plan Assessment: Chest Pain NSTEMI Hypertensive Urgency CAD s/p UT s/p PCI on OM1 (2010) Dilated CMP CKD III/IV HTN Hypothyroidism H/o ICH H/o Gastric Ulcer H/o Tobacco Use Elevated D-dimer (VQ scan low prob for PE 08/10/21) CARDIOGRAPHICS Echocardiogram 08/08/2021 - LVEF 45-50%. Mild LVH. Mild inferior wall hypokinesis. Normal RVSF. Aneurysmal atrial septum. 12/20/2020 - LVEF 25-30%. Inferior/inferolateral/anterolateral/inferior septal wall hypokinesis. Atrial septal aneurysm present without PFO. RA mildly dilated. RV mildly hypokinetic. Left Heart Cath 11/2016 - Normal sized left ventricle with normal contractility with patent stent in the obtuse marginal branch and also haziness and 50% lesion at the ostium of this vessel. Considering the angiographic pictures, it was felt that the patient can be continued on medical therapy. The lesion in the obtuse marginal branches is at the ostium and close to the main circumflex artery. This is a medium sized vessel. Previous evaluation by nuclear imaging showed evidence of scar in this area. Lexiscan Stress MPI 08/07/2021 - No evidence of reversible defects. Probable scar in the inferior and inferolateral area. Moderately decreased LVEF. Outpatient medications: ASA 325mg daily, Atorvastatin 80mg nightly, Lopressor 100mg TID, Clonidine 0.3mg TID, Amlodipine 10mg daily, Imdur 30mg daily, Hydralazine 25mg TID, HCTZ 25mg daily Plan: Tn 0.088 -> 0.095. ECG reveals new inferolateral T wave inversions. Plan for LHC in AM. NPO after midnight. Gentle pre-cath IV fluids. Pt has contrast dye allergy on chart but when asked only reports nausea. Doubt true allergy. Continue IV heparin gtt. Will hold prior to planned procedure. Resume ASA, high-intensity statin, BB, CCB, & long-acting nitrates. Resume Clonidine as well to avoid rebound HTN. Optimize antihypertensives as needed. Home cardiac medications listed above. Not on ACEI/ARB due to renal fxn. Can consider adding Aldactone at some point prior to discharge given reduced LVEF and recurrent hypokalemia. Review of office records reveals plan for eventual outpatient MUGA scan for EF evaluation and EP evaluation for AICD implantation if warranted. Pt see in conjunction with Dr. Rico, who agrees with the assessment and plan of care. - Patient Problems (1) Chest pain Current Visit: No Status: Acute (2) NSTEMI (non-ST elevated myocardial infarction) Current Visit: No Status: Acute
[2021-08-10] MEDS ORDERED: SODIUM CHLORIDE 0.9% 500 ML 500 ML IV SCH (16:00)
--- NOTE | 2021-08-10 17:18 | History and Physical Report ---
History of Present Illness Chief complaint: My chest has been hurting me History of present illness: 66 YO Female with HTN, NC x2 on DAPT, CAD S/P Stent Placement, CKD, PUD, HLD, Hypothyroidism, HLD presents to ED for evaluation. Patient reports "my chest has been hurting me". Patient states that over the past 2 days she has experienced pain in her chest. Patient states that her pain is 4/10, constant, worsened with exertion, not relieved with rest, substernal, nonradiating, associated with nausea, associated with shortness of breath, associated with diaphoresis, associated with decreased exercise tolerance. Patient transported to [facility] via private vehicle for further care and evaluation of the aforementioned symptoms. The patient was seen and evaluated in the emergency department. All lab and imaging studies reviewed. Patient found to have elevated cardiac enzymes and EKG findings consistent with NSTEMI as well as clinical symptoms consistent with diastolic CHF, GEOVANNY with ATN, and elevated liver function test. Cardiology team consulted in ED. Patient initiated on heparin drip and admitted to telemetry due to increased risk of worsening symptoms and for medical stabilization. Patient denies fever, chills, productive cough, skin rash, recent contact, known exposure to COVID-19. Prior admission in 08/06/2021 reviewed. All medication listed at time of admission has been reconciled. Advanced care planning conducted in ED. Past History Past Medical History: acute NC, CAD, hypertension, hyperlipidemia, hypothyroidism, renal failure, other (ICH) Past Surgical History: cholecystectomy, PTCA. denies: CABG Social history: smoking (former). denies: alcohol abuse Family history: other (HF (mother & father)) Medications and Allergies Allergies Allergy/AdvReac Type Severity Reaction Status Date / Time blue dye Allergy Vomiting Verified 05/21/21 22:38 Iodinated Contrast Media Allergy Vomiting Verified 05/21/21 22:38 [Iodinated Contrast- Oral and IV Dye] VEIN DYE Allergy Vomiting Uncoded 05/21/21 22:38 Home Medications Medication Instructions Recorded Confirmed Last Taken Type HYDROcodone/APAP 5-325 [[place] 1 each PO Q6HR PRN #10 tablet 05/12/16 11/19/17 12/02/17 05:30 Rx 5-325 mg TAB] AtorvaSTATin [Lipitor] 80 mg PO QHS 11/19/17 12/02/17 12/01/17 History Levothyroxine [Synthroid] 100 mcg PO DAILY 11/19/17 11/19/17 12/02/17 05:30 History Metoprolol [Lopressor TAB] 100 mg PO BID 11/19/17 11/19/17 12/02/17 05:30 History cloNIDine HCL [Catapres] 0.3 mg PO BID #30 tablet 02/27/18 Unknown Rx Diclofenac 1% [Diclofenac 1% 1 applic TP QID PRN #1 tube 08/18/19 Unknown Rx topical gel] Aspirin EC [Halfprin EC] 81 mg PO QDAY 30 Days #30 tablet 12/23/20 Unknown Rx Clopidogrel [Plavix] 75 mg PO QDAY 30 Days #30 tablet 12/23/20 Unknown Rx Gabapentin 300 mg PO TID 12/23/20 12/23/20 12/19/20 History amLODIPine 10 mg PO QDAY 30 Days #30 tablet 12/23/20 Unknown Rx hydrALAZINE [Apresoline TAB] 50 mg PO BID 30 Days #30 tablet 12/23/20 Unknown Rx ISOSORBIDE MONOnitrate [Imdur ER] 30 mg PO QDAY #30 tablet 08/08/21 Unknown Rx Spironolactone [Aldactone] 25 mg PO QDAY #30 tablet 08/08/21 Unknown Rx Active Meds: Active Medications Heparin Sodium (Porcine) (Heparin 10,000 Units/10 Ml Vial) 2,800 unit IV Q6H PRN PRN Reason: Anti-Xa Assay<0.1 units/ml Heparin Sodium/Sodium Chloride (Heparin/ 0.45% Nacl-25,000 Unit/500 Ml) 25,000 unit in 500 mls @ 20 mls/hr IV TITRATE KALE; Protocol Sodium Chloride (Nacl 0.9% 500 Ml) 500 mls @ 50 mls/hr IV DIRECT KALE Stop: 08/11/21 01:59 Review of Systems Constitutional: no weight loss, no weight gain, no fever, no chills Ears, nose, mouth and throat: no ear pain, no decreased hearing, no nose pain, no nasal congestion, no nasal discharge Breasts: no change in shape, no swelling, no mass Cardiovascular: chest pain, shortness of breath, decreased exercise tolerance Respiratory: no cough, no cough with sputum, no excessive sputum Gastrointestinal: nausea, no abdominal pain, no diarrhea, no constipation Genitourinary Female: no pelvic pain, no flank pain, no dysuria, no stress incontinence Rectal: no pain, no incontinence, no bleeding Musculoskeletal: no neck stiffness, no neck pain, no shooting arm pain, no shooting leg pain Integumentary: no rash, no redness, no sores, no wounds, no jaundice Neurological: no head injury, no transient paralysis, no parathesias, no numbness, no seizures Psychiatric: no anxiety, no change in sleep habits, no sleep disturbances, no insomnia, no hypersomnia, no change in libido, no disorientation Endocrine: no cold intolerance, no polyphagia, no excessive thirst Hematologic/Lymphatic: no easy bleeding, no lymphadenopathy Allergic/Immunologic: no allergic rhinitis, no wheezing, no persistent infections, no angioedema Exam - Constitutional Vitals: Temp Pulse Resp BP Pulse Ox 98.4 F 109 H 19 170/106 94 08/10/21 08:15 08/10/21 14:19 08/10/21 11:46 08/10/21 14:19 08/10/21 11:46 General appearance: Present: mild distress - EENT Eyes: Present: PERRL ENT: hearing intact, clear oral mucosa - Neck Neck: Present: supple, normal ROM - Respiratory Respiratory effort: normal Respiratory: bilateral: CTA - Cardiovascular Heart Sounds: Present: S1 & S2. Absent: rub, click - Extremities Extremities: pulses symmetrical, No edema Peripheral Pulses: within normal limits - Abdominal General gastrointestinal: Present: soft, non-tender, non-distended, normal bowel sounds Female genitourinary: Present: normal - Integumentary Integumentary: Present: clear, warm, dry - Musculoskeletal Musculoskeletal: gait normal, strength equal bilaterally - Psychiatric Psychiatric: appropriate mood/affect, intact judgment & insight - Neurologic Neurologic: CNII-XII intact, moves all extremities HEART Score - HEART Score Troponin: Troponin T 0.095 ng/mL (0.00-0.029) H 08/10/21 14:29 Results - Labs CBC & Chem 7: 08/10/21 Unknown 08/10/21 10:56 Labs: Abnormal lab results 08/10/21 08/10/21 08/10/21 Range/Units 10:56 14:29 Unknown MCH 27 L (28-32) pg Lymph % (Auto) 7.5 L (13.4-35.0) % [place] % (Auto) 9.8 H (0.0-7.3) % Lymph # (Auto) 0.6 L (1.2-5.4) K/mm3 Seg Neutrophils % 82.1 H (40.0-70.0) % D-Dimer (0-234) ng/mlDDU Sodium 134 L (137-145) mmol/L Potassium 3.2 L (3.6-5.0) mmol/L Chloride 94.4 L (98-107) mmol/L Carbon Dioxide 18 L (22-30) mmol/L BUN 36 H (7-17) mg/dL Creatinine 1.7 H (0.6-1.2) mg/dL Glucose 115 H (65-100) mg/dL Calcium 10.7 H (8.4-10.2) mg/dL AST 67 H (5-40) units/L ALT 124 H (7-56) units/L Alkaline Phosphatase 151 H (35-129) units/L Troponin T 0.088 H D 0.095 H (0.00-0.029) ng/mL Cholesterol 203 H (50-199) mg/dL HDL Cholesterol 73 H (40-59) mg/dL 08/10/21 Range/Units Unknown MCH (28-32) pg Lymph % (Auto) (13.4-35.0) % [place] % (Auto) (0.0-7.3) % Lymph # (Auto) (1.2-5.4) K/mm3 Seg Neutrophils % (40.0-70.0) % D-Dimer 1104.65 H (0-234) ng/mlDDU Sodium (137-145) mmol/L Potassium (3.6-5.0) mmol/L Chloride (98-107) mmol/L Carbon Dioxide (22-30) mmol/L BUN (7-17) mg/dL Creatinine (0.6-1.2) mg/dL Glucose (65-100) mg/dL Calcium (8.4-10.2) mg/dL AST (5-40) units/L ALT (7-56) units/L Alkaline Phosphatase (35-129) units/L Troponin T (0.00-0.029) ng/mL Cholesterol (50-199) mg/dL HDL Cholesterol (40-59) mg/dL Assessment and Plan - Patient Problems (1) NSTEMI (non-ST elevated myocardial infarction) Current Visit: Yes Status: Acute Plan to address problem: ACS protocol: Serial cardiac enzymes, EKG, telemetry monitoring, serial EKG, cardiology team consulted. Patient pending cardiac cath in a.m. as per cardiology team. Morphine, submental oxygen, nitro, aspirin. (2) Diastolic CHF Current Visit: Yes Status: Acute Qualifiers: Heart failure chronicity: acute Qualified Code(s): I50.31 - Acute diastolic (congestive) heart failure Plan to address problem: Strict I/O, urine output every shift, daily weight, afterload reduction, blood pressure control, patient pending cardiac cath in a.m. (3) Elevated LFTs Current Visit: Yes Status: Acute Plan to address problem: Supportive care, repeat LFT in AM. (4) Hyperlipidemia Current Visit: Yes Status: Acute Qualifiers: Hyperlipidemia type: mixed hyperlipidemia Qualified Code(s): E78.2 - Mixed hyperlipidemia Plan to address problem: Statin therapy, supportive care. (5) Hypothyroidism Current Visit: Yes Status: Acute Qualifiers: Hypothyroidism type: unspecified Qualified Code(s): E03.9 - Hypothyroidism, unspecified Plan to address problem: Continue Synthroid therapy, supportive care. (6) DVT prophylaxis Current Visit: Yes Status: Acute Plan to address problem: SCD to bilateral lower extremities while in bed, continue therapeutic anticoagulation (7) Advance care planning Current Visit: Yes Status: Acute Plan to address problem: Disease education data, care plan discussed, diagnosis discussed, prognosis discussed, patient is full code. Patient acknowledges understanding and agreement with care plan, +30 minutes. (8) Preventative health care Current Visit: Yes Status: Acute Plan to address problem: Patient counseled regarding cardiac risk factor reduction, balanced diet, meal planning, outpatient follow-up with primary care physician for all age and risk factor appropriate screening test. +30 minutes.
[2021-08-10] MEDS ORDERED: ONDANSETRON 4 MG/2 ML INJ IV PRN (17:20)
[2021-08-10] MEDS ORDERED: ALBUTEROL 2.5 MG/3 ML NEBU IH PRN (17:20)
[2021-08-10] MEDS ORDERED: NITROGLYCERIN 0.4 MG TAB SUBL SL PRN (17:20)
--- NOTE | 2021-08-10 18:27 | Nuclear Medicine Report ---
NUCLEAR MEDICINE PERFUSION LUNG SCAN INDICATION / CLINICAL INFORMATION: Chest pain. TECHNIQUE: 5.1 mCi of Tc-99m MAA were given by IV. COMPARISON: Chest radiograph dated same day. FINDINGS: PERFUSION: No significant perfusion defects. ADDITIONAL FINDINGS: None. IMPRESSION: 1. Low probability for pulmonary embolism. Signer Name: Andrew Skinner MD Signed: 08/10/2021 5:33 PM Workstation Name: [id number]
[2021-08-10] MEDS: MORPHINE 4 MG/1 ML INJ IV PRN (19:37)
[2021-08-10] MEDS: GABAPENTIN 300 MG CAP PO SCH (19:37)
--- NOTE | 2021-08-10 21:45 | Electrocardiograph Report ---
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
[2021-08-10] MEDS ORDERED: FAMOTIDINE 20 MG TAB PO SCH (22:00)
[2021-08-10] MEDS ORDERED: CLONIDINE HCL 0.3 MG PO SCH (22:00)
[2021-08-10] MEDS: METOPROLOL TARTRATE 100 MG TAB PO SCH (22:37)
[2021-08-10] MEDS: hydrALAZINE 25 MG TAB PO SCH (22:37)
[2021-08-10] MEDS: cloNIDine 0.1 MG TAB PO SCH (22:38)
[2021-08-10] MEDS: oxyCODONE /ACETAMINOPHEN 5-325MG TAB PO PRN (22:58)
[2021-08-11 07:03] LABS: Eosinophils # (Auto) 0.1 K/mm3 (0.0-0.4); Eosinophils % (Auto) 1.5 % (0.0-4.3); Monocytes # (Auto) 0.8 K/mm3 (0.0-0.8); Monocytes % (Auto) 14.2 % (0.0-7.3)
[2021-08-11 07:14] LABS: Calcium 9.9 mg/dL (8.4-10.2)
[2021-08-11 07:16] LABS: INR 0.97 (0.87-1.13)
[2021-08-11] MEDS: oxyCODONE /ACETAMINOPHEN 5-325MG TAB PO PRN ×3 (08:46→20:52)
[2021-08-11] MEDS: GABAPENTIN 300 MG CAP PO SCH ×3 (08:47→20:59)
[2021-08-11] MEDS: METOPROLOL TARTRATE 100 MG TAB PO SCH (09:00)
[2021-08-11] MEDS: hydrALAZINE 25 MG TAB PO SCH ×2 (09:00→20:59)
[2021-08-11] MEDS: FAMOTIDINE 10 MG TAB PO SCH ×2 (09:00→20:59)
[2021-08-11] MEDS: cloNIDine 0.1 MG TAB PO SCH ×2 (09:01→21:00)
[2021-08-11] MEDS: amLODIPine 10 MG TAB PO SCH (09:01)
[2021-08-11] MEDS: LEVOTHYROXINE 100 MCG TAB PO SCH (09:02)
[2021-08-11] MEDS: SPIRONOLACTONE 25 MG TAB PO SCH (09:04)
[2021-08-11] MEDS: ASPIRIN 81 MG TAB CHEW PO SCH (09:05)
[2021-08-11] MEDS ORDERED: HEPARIN 10,000 UNITS/10 ML VIAL IV PRN (10:00)
--- NOTE | 2021-08-11 10:25 | Progress Note ---
Assessment and Plan Patient is a 66-year-old AA female with a hx of ND, CAD s/p PCI of OM1 in 2010, dilated CMP, CKDIII/IV, malignant HTN, and h/o ICH who presented with complaints of chest pain x 1 day. Chest Pain NSTEMI Hypertensive Urgency CAD s/p ND s/p PCI on OM1 (2010) Dilated CMP CKD III/IV HTN Hypothyroidism H/o ICH H/o Gastric Ulcer H/o Tobacco Use Elevated D-dimer (VQ scan low prob for PE 08/10/21) Echocardiogram 08/08/2021 - LVEF 45-50%. Mild LVH. Mild inferior wall hypokinesis. Normal RVSF. Aneurysmal atrial septum. 12/20/2020 - LVEF 25-30%. Inferior/inferolateral/anterolateral/inferior septal wall hypokinesis. Atrial septal aneurysm present without PFO. RA mildly dilated. RV mildly hypokinetic. Left Heart Cath 11/2016 - Normal sized left ventricle with normal contractility with patent stent in the obtuse marginal branch and also haziness and 50% lesion at the ostium of this vessel. Considering the angiographic pictures, it was felt that the patient can be continued on medical therapy. The lesion in the obtuse marginal branches is at the ostium and close to the main circumflex artery. This is a medium sized vessel. Previous evaluation by nuclear imaging showed evidence of scar in this area. Lexiscan Stress MPI 08/07/2021 - No evidence of reversible defects. Probable scar in the inferior and inferolateral area. Moderately decreased LVEF. Outpatient medications: ASA 325mg daily, Atorvastatin 80mg nightly, Lopressor 100mg TID, Clonidine 0.3mg TID, Amlodipine 10mg daily, Imdur 30mg daily, Hydralazine 25mg TID, HCTZ 25mg daily Plan: LHC postponed today due to rising creatinine this a.m. Would like nephrology clearance prior for LHC Will plan for LHC in AM if cleared by nephrology. NPO after midnight. Pt has contrast dye allergy on chart but when asked only reports nausea. Doubt true allergy. Continue IV heparin gtt. Will hold prior to planned procedure. Continue ASA, high-intensity statin, CCB, & long-acting nitrates. Continue Clonidine as well to avoid rebound HTN. Optimize antihypertensives as needed. Patient episode of bradycardia today down to the 30s. Patient reported that she felt as if she has to have a bowel movement. Suspect possible vasovagal response. We will hold beta-blockers for now and continue to monitor Home cardiac medications listed above. Not on ACEI/ARB due to renal fxn. Continue Aldactone Review of office records reveals plan for eventual outpatient MUGA scan for EF evaluation and EP evaluation for AICD implantation if warranted. Pt see in conjunction with Dr. Fuentes, who agrees with the assessment and plan of care. - Patient Problems (1) CAD (coronary artery disease) Current Visit: No Status: Acute (2) Chest pain Current Visit: No Status: Acute (3) Gastroenteritis Current Visit: No Status: Acute (4) Hyperlipidemia Current Visit: No Status: Acute (5) Hypertension Current Visit: No Status: Acute (6) Renal insufficiency Current Visit: No Status: Acute Subjective Date of service: 08/11/21 Principal diagnosis: chest pain Interval history: Patient resting in bed in no acute distress. Patient denies any current chest pain. She reports sciatic pain that she normally has Sinus 80s on monitor with few PVCs Objective Vital Signs Temp Pulse Resp BP BP Pulse Ox 08/11/21 10:08 95 08/11/21 08:15 98.7 F 73 131/100 92 08/11/21 06:11 98.6 F 69 16 145/104 93 08/11/21 02:20 66 08/11/21 01:03 99.0 F 54 L 16 94/64 94 08/10/21 22:58 17 08/10/21 22:38 103 H 160/113 08/10/21 22:37 103 H 160/113 08/10/21 21:57 98.8 F 103 H 16 157/113 94 08/10/21 21:11 79 19 157/121 96 08/10/21 21:01 100 H 17 150/114 92 08/10/21 20:51 108 H 18 150/114 92 08/10/21 20:41 102 H 19 134/101 92 08/10/21 20:31 102 H 20 134/101 97 08/10/21 20:21 103 H 17 154/99 92 08/10/21 20:11 98.9 F 106 H 15 173/110 92 08/10/21 20:01 107 H 18 165/118 94 08/10/21 19:45 99 H 12 173/120 96 08/10/21 19:37 18 08/10/21 19:31 97 H 17 173/120 98 08/10/21 19:15 103 H 18 195/135 98 08/10/21 19:01 93 H 14 184/138 97 08/10/21 18:45 103 H 15 191/125 99 08/10/21 18:31 87 16 195/135 97 08/10/21 18:15 91 H 15 191/125 98 08/10/21 18:01 88 14 184/131 98 08/10/21 17:45 97 H 16 149/98 99 08/10/21 17:31 99 H 16 182/135 99 08/10/21 17:15 91 H 16 176/130 97 08/10/21 17:05 102 H 16 149/98 98 08/10/21 16:45 103 H 17 149/98 94 08/10/21 16:31 97 H 17 149/98 94 08/10/21 16:15 95 H 15 153/106 93 08/10/21 16:01 95 H 16 138/90 97 08/10/21 15:45 96 H 17 134/85 97 08/10/21 15:31 92 H 17 134/85 96 08/10/21 15:15 92 H 14 131/93 98 08/10/21 15:01 83 18 116/80 97 08/10/21 14:45 90 16 134/92 97 08/10/21 14:31 109 H 15 162/116 93 08/10/21 14:19 109 H 170/106 08/10/21 14:18 111 H 170/106 08/10/21 14:15 110 H 16 170/106 87 08/10/21 14:01 112 H 21 181/99 91 08/10/21 13:45 176/116 93 08/10/21 13:31 176/116 97 08/10/21 13:15 176/116 95 08/10/21 13:01 187/124 95 08/10/21 12:45 221/149 96 08/10/21 12:31 205/146 60 L 08/10/21 12:29 101 H 205/146 08/10/21 12:15 205/163 94 08/10/21 12:01 197/127 98 08/10/21 11:46 109 H 19 195/124 94 08/10/21 11:45 195/124 99 08/10/21 11:38 98 - Physical Examination General: No Apparent Distress HEENT: Positive: EOMI, Normocephaly Neck: Negative: JVD/HJR Cardiac: Positive: Reg Rate and Rhythm Lungs: Positive: Normal Breath Sounds Neuro: Positive: Grossly Intact Abdomen: Positive: Soft. Negative: Tender Skin: Negative: Rash Musculoskeletal: Normal Range of Motion, other (hip pain // sciatica) Extremities: Present: warm. Absent: edema - Labs and Meds Cardiac Enzymes 08/10/21 Range/Units 10:56 AST 67 H (5-40) units/L Coagulation 08/10/21 08/11/21 Range/Units Unknown 06:55 PT 14.1 13.9 (12.2-14.9) Sec. INR 0.98 0.97 (0.87-1.13) APTT 27.5 (24.2-36.6) Sec. Lipids 08/10/21 Range/Units 10:56 Triglycerides 102 (2-149) mg/dL Cholesterol 203 H (50-199) mg/dL HDL Cholesterol 73 H (40-59) mg/dL Cholesterol/HDL Ratio 2.78 % CBC 08/10/21 08/11/21 Range/Units Unknown 06:55 WBC 7.7 (4.5-11.0) K/mm3 RBC 4.97 (3.65-5.03) M/mm3 Hgb 13.6 (10.1-14.3) gm/dl Hct 41.0 (30.3-42.9) % Plt Count 190 (140-440) K/mm3 Lymph # (Auto) 0.6 L (1.2-5.4) K/mm3 [place] # (Auto) 0.8 0.8 (0.0-0.8) K/mm3 Eos # (Auto) 0.0 0.1 (0.0-0.4) K/mm3 Baso # (Auto) 0.0 0.0 (0.0-0.1) K/mm3 Comprehensive Metabolic Panel 08/10/21 08/11/21 Range/Units 10:56 06:55 Sodium 134 L 134 L (137-145) mmol/L Potassium 3.2 L 3.4 L (3.6-5.0) mmol/L Chloride 94.4 L 98.9 (98-107) mmol/L Carbon Dioxide 18 L 24 (22-30) mmol/L BUN 36 H 37 H (7-17) mg/dL Creatinine 1.7 H 1.9 H (0.6-1.2) mg/dL Glucose 115 H 118 H (65-100) mg/dL Calcium 10.7 H 9.9 (8.4-10.2) mg/dL AST 67 H (5-40) units/L ALT 124 H (7-56) units/L Alkaline Phosphatase 151 H (35-129) units/L Total Protein 8.1 (6.3-8.2) g/dL Albumin 4.3 (3.9-5) g/dL - Imaging and Cardiology EKG: report reviewed, image reviewed Echo: report reviewed Cardiac cath: report reviewed - Telemetry EKG Rhythm: Sinus Rhythm - EKG Sinus rhythms and dysrhythmias: sinus rhythm
[2021-08-11] MEDS: HEPARIN/ 0.45% NACL DRIP 25,000 UNIT/500 ML BAG IV SCH (10:34)
[2021-08-11 10:47] LABS: Basophils % (Auto) 0.5 % (0.0-1.8); Hematocrit 42.7 % (30.3-42.9); Lymphocytes % (Auto) 17.2 % (13.4-35.0); Mean Corpuscular HGB Conc 33 % (30-34); Mean Corpuscular Volume 84 fl (79-97); Platelet Count 203 K/mm3 (140-440); Red Blood Count 5.08 M/mm3 (3.65-5.03); Red Cell Distribution Width 14.7 % (13.2-15.2)
[2021-08-11] MEDS ORDERED: SODIUM CHLORIDE 0.9% 500 ML 500 ML IV SCH (11:00)
--- NOTE | 2021-08-11 16:29 | Progress Note ---
Assessment and Plan This Is a 66-year-old female with a history of chronic pain syndrome on pain management, history of coronary disease with stent placement, cardiomyopathy, CKD who was recently discharged from the hospital 2 days ago after being worked up for the chest pain and with a negative stress test, comes back again with complaint of chest pain. 08/11: Creatinine trended up, plan for cardiac cath. Cardiology recommended to consult nephrology for renal clearance to proceed with cardiac cath. Nephrology has been consulted, repeat BMP and LFTs tomorrow. Patient placed on heparin drip, continue to follow clinically. Assessment and plan: -- NSTEMI (non-ST elevated myocardial infarction) Current Visit: Yes Status: Acute Plan to address problem: ACS protocol: Serial cardiac enzymes, EKG, telemetry monitoring, serial EKG, cardiology team consulted. Patient pending cardiac cath in a.m. as per cardiology team. Morphine, submental oxygen, nitro, aspirin. -- Diastolic CHF Current Visit: Yes Status: Acute Qualifiers: Heart failure chronicity: acute Qualified Code(s): I50.31 - Acute diastolic (congestive) heart failure Plan to address problem: Strict I/O, urine output every shift, daily weight, afterload reduction, blood pressure control, patient pending cardiac cath in a.m. -- Elevated LFTs Current Visit: Yes Status: Acute Plan to address problem: Supportive care, repeat LFT in AM. -- Hyperlipidemia Current Visit: Yes Status: Acute Qualifiers: Hyperlipidemia type: mixed hyperlipidemia Qualified Code(s): E78.2 - Mixed hyperlipidemia Plan to address problem: Statin therapy, supportive care. -- Hypothyroidism Current Visit: Yes Status: Acute Qualifiers: Hypothyroidism type: unspecified Qualified Code(s): E03.9 - Hypothyroidism, unspecified Plan to address problem: Continue Synthroid therapy, supportive care. --Elevated D-dimer, low probability for PE in VQ scan -- Constipation, added stool softener -- DVT prophylaxis Current Visit: Yes Status: Acute Plan to address problem: SCD to bilateral lower extremities while in bed, continue therapeutic anticoagulation -- Advance care planning Current Visit: Yes Status: Acute Plan to address problem: Disease education data, care plan discussed, diagnosis discussed, prognosis discussed, patient is full code. Patient acknowledges understanding and agreement with care plan, +30 minutes. (8) Preventative health care Current Visit: Yes Status: Acute Plan to address problem: Patient counseled regarding cardiac risk factor reduction, balanced diet, meal planning, outpatient follow-up with primary care physician for all age and risk factor appropriate screening test. +30 minutes. Subjective Date of service: 08/11/21 Principal diagnosis: chest pain Interval history: Patient seen and examined. Medical records and medication list reviewed. No acute event overnight noted by the RN. Patient complains of epigastric fullness and constipation. Patient is tolerating diet. States that she did not have a bowel movement in the last couple days Discussed plan of care at bedside with patient. Objective - Exam Narrative Exam: GENERAL: well-developed and well-nourished elderly -[place] female lying on bed appeared to be in no discomfort. HEENT: Normocephalic. Atraumatic. No conjunctival congestion or icterus. Patient has moist mucous membranes. NECK: Supple. Trachea midline. CHEST/LUNGS: Clear to auscultated bilaterally, breathing nonlabored. No wheezes crackles or rhonchi. HEART/CARDIOVASCULAR: Regular in rate and rhythm. S1 and S2 positive. ABDOMEN: Abdomen is soft, nontender. Patient has normal bowel sounds. SKIN: There is no rash. Warm and dry. NEURO: No focal motor deficit. Follows command. MUSCULOSKELETAL: No joint effusion or tenderness. EXTRIMITY: No edema, no cyanosis or clubbing. PSYCH: Cooperative. - Constitutional Vitals: Vital Signs - 12hr 08/11/21 08/11/21 08/11/21 06:11 08:15 08:31 Temperature 98.6 F 98.7 F Pulse Rate 69 73 Respiratory 16 Rate Blood Pressure 145/104 131/100 O2 Sat by Pulse 93 92 93 Oximetry 08/11/21 08/11/21 08/11/21 10:08 12:00 12:57 Temperature Pulse Rate 72 Respiratory Rate Blood Pressure 92/58 O2 Sat by Pulse 95 Oximetry 08/11/21 08/11/21 14:56 15:08 Temperature 97.9 F Pulse Rate 60 Respiratory Rate Blood Pressure 93/66 95/64 O2 Sat by Pulse 92 Oximetry - Labs CBC & Chem 7: 08/11/21 06:55 08/11/21 06:55 Labs: Abnormal lab results 08/10/21 08/10/21 08/11/21 Range/Units 21:16 23:30 06:08 RBC (3.65-5.03) M/mm3 [place] % (Auto) (0.0-7.3) % Lymph # (Auto) (1.2-5.4) K/mm3 Sodium (137-145) mmol/L Potassium (3.6-5.0) mmol/L BUN (7-17) mg/dL Creatinine (0.6-1.2) mg/dL Glucose (65-100) mg/dL POC Glucose 119 H (70-105) mg/dL Troponin T 0.081 H 0.093 H (0.00-0.029) ng/mL 08/11/21 08/11/21 08/11/21 Range/Units 06:55 06:55 11:39 RBC 5.08 H (3.65-5.03) M/mm3 [place] % (Auto) 14.2 H (0.0-7.3) % Lymph # (Auto) 1.0 L (1.2-5.4) K/mm3 Sodium 134 L (137-145) mmol/L Potassium 3.4 L (3.6-5.0) mmol/L BUN 37 H (7-17) mg/dL Creatinine 1.9 H (0.6-1.2) mg/dL Glucose 118 H (65-100) mg/dL POC Glucose 162 H (70-105) mg/dL Troponin T (0.00-0.029) ng/mL 08/11/21 Range/Units 12:50 RBC (3.65-5.03) M/mm3 [place] % (Auto) (0.0-7.3) % Lymph # (Auto) (1.2-5.4) K/mm3 Sodium (137-145) mmol/L Potassium (3.6-5.0) mmol/L BUN (7-17) mg/dL Creatinine (0.6-1.2) mg/dL Glucose (65-100) mg/dL POC Glucose 118 H (70-105) mg/dL Troponin T (0.00-0.029) ng/mL HEART Score - HEART Score EKG: Non-specific Age: > 65 Risk factors: 1-2 risk factors Troponin: Troponin T 0.093 ng/mL (0.00-0.029) H 08/10/21 23:30 Troponin: 1-3x normal limit
[2021-08-11] MEDS: POLYETHYLENE GLYCOL 3350 17 GM POWDER PO SCH (17:21)
[2021-08-11] MEDS: DOCUSATE SODIUM 100 MG CAP PO SCH (21:00)
[2021-08-11 23:05] LABS: INR 1.02 (0.87-1.13)
[2021-08-12] MEDS: ACETAMINOPHEN 325 MG TAB PO PRN (03:35)
[2021-08-12 04:11] LABS: Basophils % (Auto) 0.6 % (0.0-1.8); Eosinophils # (Auto) 0.2 K/mm3 (0.0-0.4); Eosinophils % (Auto) 3.5 % (0.0-4.3); Hematocrit 39.8 % (30.3-42.9); Hemoglobin 12.9 gm/dl (10.1-14.3); Lymphocytes # (Auto) 1.2 K/mm3 (1.2-5.4); Lymphocytes % (Auto) 19.5 % (13.4-35.0); Mean Corpuscular HGB Conc 33 % (30-34); Mean Corpuscular Volume 84 fl (79-97); Monocytes # (Auto) 0.8 K/mm3 (0.0-0.8); Monocytes % (Auto) 12.3 % (0.0-7.3); Platelet Count 171 K/mm3 (140-440); Red Blood Count 4.73 M/mm3 (3.65-5.03); Red Cell Distribution Width 14.4 % (13.2-15.2)
[2021-08-12 04:20] LABS: INR 0.97 (0.87-1.13)
[2021-08-12 04:23] LABS: Calcium 9.4 mg/dL (8.4-10.2)
[2021-08-12] MEDS: GABAPENTIN 300 MG CAP PO SCH ×3 (08:11→20:46)
[2021-08-12] MEDS: oxyCODONE /ACETAMINOPHEN 5-325MG TAB PO PRN ×3 (08:11→22:00)
[2021-08-12] MEDS: HEPARIN/ 0.45% NACL DRIP 25,000 UNIT/500 ML BAG IV SCH (08:15)
[2021-08-12] MEDS: ASPIRIN 81 MG TAB CHEW PO SCH (09:44)
[2021-08-12] MEDS: FAMOTIDINE 10 MG TAB PO SCH ×2 (09:44→21:54)
[2021-08-12] MEDS: amLODIPine 10 MG TAB PO SCH (09:44)
[2021-08-12] MEDS: DOCUSATE SODIUM 100 MG CAP PO SCH (09:45)
[2021-08-12] MEDS: SPIRONOLACTONE 25 MG TAB PO SCH (09:45)
[2021-08-12] MEDS: POLYETHYLENE GLYCOL 3350 17 GM POWDER PO SCH (09:45)
[2021-08-12] MEDS: hydrALAZINE 25 MG TAB PO SCH ×2 (09:46→21:54)
[2021-08-12] MEDS: cloNIDine 0.1 MG TAB PO SCH (09:46)
[2021-08-12] MEDS: LEVOTHYROXINE 100 MCG TAB PO SCH (09:47)
--- NOTE | 2021-08-12 10:02 | Electrocardiograph Report ---
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
--- NOTE | 2021-08-12 10:04 | Electrocardiograph Report ---
[facility] Test Date: 2021-08-11 Test Time: 13:04:08 Pat Name: YOEL ORO Department: Room: A480 1 Gender: F Process Coordinator: [id number] : 1955 Requested By: JUDE MONTANA Order Number: [id number] Reading MD: Vimal Fuentes Measurements Intervals [place] Rate: 62 P: 7 OR: 204 QRS: -41 QRSD: 123 T: 149 QT: 453 QTc: 460 Interpretive Statements Sinus rhythm Left atrial enlargement LVH with IVCD, LAD and secondary repol abnrm Anterior ST elevation, probably due to LVH Compared to ECG 08/11/2021 06:59:27 Left ventricular hypertrophy now present Early repolarization now present Left bundle-branch block no longer present ST (T wave) deviation still present Electronically Signed On 08-12-2021 10:04:07 EDT by Vimal Fuentes
--- NOTE | 2021-08-12 10:07 | Electrocardiograph Report ---
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
--- NOTE | 2021-08-12 10:32 | Progress Note ---
Assessment and Plan Patient is a 66-year-old AA female with a hx of [place], CAD s/p PCI of OM1 in 2010, dilated CMP, CKDIII/IV, malignant HTN, and h/o ICH who presented with complaints of chest pain x 1 day. Chest Pain NSTEMI Hypertensive Urgency CAD s/p AR s/p PCI on OM1 (2010) Dilated CMP CKD III/IV HTN Hypothyroidism H/o ICH H/o Gastric Ulcer H/o Tobacco Use Elevated D-dimer (VQ scan low prob for PE 08/10/21) Echocardiogram 08/08/2021 - LVEF 45-50%. Mild LVH. Mild inferior wall hypokinesis. Normal RVSF. Aneurysmal atrial septum. 12/20/2020 - LVEF 25-30%. Inferior/inferolateral/anterolateral/inferior septal wall hypokinesis. Atrial septal aneurysm present without PFO. RA mildly dilated. RV mildly hypokinetic. Left Heart Cath 11/2016 - Normal sized left ventricle with normal contractility with patent stent in the obtuse marginal branch and also haziness and 50% lesion at the ostium of this vessel. Considering the angiographic pictures, it was felt that the patient can be continued on medical therapy. The lesion in the obtuse marginal branches is at the ostium and close to the main circumflex artery. This is a medium sized vessel. Previous evaluation by nuclear imaging showed evidence of scar in this area. Lexiscan Stress MPI 08/07/2021 - No evidence of reversible defects. Probable scar in the inferior and inferolateral area. Moderately decreased LVEF. Outpatient medications: ASA 325mg daily, Atorvastatin 80mg nightly, Lopressor 100mg TID, Clonidine 0.3mg TID, Amlodipine 10mg daily, Imdur 30mg daily, Hydralazine 25mg TID, HCTZ 25mg daily Plan: LHC postponed again today due to continue rise in creatinine this a.m and patient not cleared by nephrology yesterday Would like nephrology clearance prior for LHC Will plan for LHC in AM if cleared by nephrology. NPO after midnight. Will initiate IVF for rehydration as long as nephrology is ok with it. Pt has contrast dye allergy on chart but when asked only reports nausea. Doubt true allergy. Continue IV heparin gtt. Will hold prior to planned procedure. Continue ASA, high-intensity statin, CCB, & long-acting nitrates. Due to bradycardia and pause will stop clonidine for now and continue to monitor on tele Home cardiac medications listed above. Not on ACEI/ARB due to renal fxn. Continue Aldactone Review of office records reveals plan for eventual outpatient MUGA scan for EF evaluation and EP evaluation for AICD implantation if warranted. Pt see in conjunction with Dr. Fuentes, who agrees with the assessment and plan of care. - Patient Problems (1) CAD (coronary artery disease) Current Visit: No Status: Acute (2) Chest pain Current Visit: No Status: Acute (3) Gastroenteritis Current Visit: No Status: Acute (4) Hyperlipidemia Current Visit: No Status: Acute (5) Hypertension Current Visit: No Status: Acute (6) Renal insufficiency Current Visit: No Status: Acute Subjective Date of service: 08/12/21 Principal diagnosis: chest pain Interval history: Patient resting in bed in no acute distress. Patient denies any current chest pain. She reports sciatic pain that she states is chronic Sinus 60s-70s on monitor with few PVCs and bradycardia overnight.Matilde also had 4.8 second pause overnight Objective Vital Signs Temp Pulse Resp BP BP Pulse Ox 08/12/21 09:18 97 08/12/21 03:54 98.2 F 58 L 16 106/70 100 08/12/21 00:52 98 08/12/21 00:15 97.3 F L 61 16 102/75 94 08/11/21 22:50 98 08/11/21 21:00 121/83 08/11/21 20:59 121/83 08/11/21 19:21 97.5 F L 63 16 121/83 96 08/11/21 15:08 97.9 F 60 95/64 92 08/11/21 14:56 93/66 08/11/21 12:57 92/58 08/11/21 12:00 72 - Physical Examination General: No Apparent Distress HEENT: Positive: EOMI, Normocephaly Neck: Negative: JVD/HJR Cardiac: Positive: Reg Rate and Rhythm Lungs: Positive: Normal Breath Sounds Neuro: Positive: Grossly Intact Abdomen: Positive: Soft. Negative: Tender Skin: Negative: Rash Musculoskeletal: Normal Range of Motion, other (hip pain // sciatica) Extremities: Present: warm. Absent: edema - Labs and Meds Coagulation 08/11/21 08/12/21 Range/Units 22:18 03:50 PT 14.5 13.9 (12.2-14.9) Sec. INR 1.02 0.97 (0.87-1.13) APTT 146.0 H* (24.2-36.6) Sec. CBC 08/11/21 08/11/21 08/12/21 Range/Units 06:55 22:18 03:50 WBC 5.7 6.2 (4.5-11.0) K/mm3 RBC 5.08 H 4.73 (3.65-5.03) M/mm3 Hgb 14.0 12.0 12.9 (10.1-14.3) gm/dl Hct 42.7 38.0 39.8 (30.3-42.9) % Plt Count 203 193 171 (140-440) K/mm3 Lymph # (Auto) 1.0 L 1.2 (1.2-5.4) K/mm3 [place] # (Auto) 0.8 (0.0-0.8) K/mm3 Eos # (Auto) 0.2 (0.0-0.4) K/mm3 Baso # (Auto) 0.0 (0.0-0.1) K/mm3 Comprehensive Metabolic Panel 08/12/21 Range/Units 03:50 Sodium 131 L (137-145) mmol/L Potassium 3.5 L (3.6-5.0) mmol/L Chloride 95.7 L (98-107) mmol/L Carbon Dioxide 21 L (22-30) mmol/L BUN 48 H (7-17) mg/dL Creatinine 2.3 H (0.6-1.2) mg/dL Glucose 126 H (65-100) mg/dL Calcium 9.4 (8.4-10.2) mg/dL - Imaging and Cardiology EKG: report reviewed, image reviewed Echo: report reviewed Cardiac cath: report reviewed - Telemetry EKG Rhythm: Sinus Rhythm - EKG Sinus rhythms and dysrhythmias: sinus rhythm
[2021-08-12] MEDS ORDERED: SODIUM CHLORIDE 0.9% 500 ML 500 ML IV SCH (11:00)
[2021-08-12] MEDS: SODIUM CHLORIDE 0.9% 1000 ML 1,000 ML IV SCH (13:48)
[2021-08-12] MEDS ORDERED: MAGNESIUM HYDROXIDE (MOM) ORAL LIQD UDC PO ONE (18:46)
[2021-08-12] MEDS ORDERED: MAGNESIUM HYDROXIDE (MOM) ORAL LIQD UDC PO PRN (18:46)
[2021-08-12] MEDS: MORPHINE 4 MG/1 ML INJ IV PRN (18:50)
--- NOTE | 2021-08-12 18:54 | Progress Note ---
Assessment and Plan Assessment and plan: This Is a 66-year-old female with a history of chronic pain syndrome on pain management, history of coronary disease with stent placement, cardiomyopathy, CKD who was recently discharged from the hospital 2 days ago after being worked up for the chest pain and with a negative stress test, comes back again with complaint of chest pain. 08/11: Creatinine trended up, plan for cardiac cath. Cardiology recommended to consult nephrology for renal clearance to proceed with cardiac cath. Nephrology has been consulted, repeat BMP and LFTs tomorrow. Patient placed on heparin drip, continue to follow clinically. 08/12; worsening renal function, nephrology consulted, follow renal and cardiology recommendations Left heart catheterization rescheduled due to worsening renal function Assessment and plan: -- NSTEMI (non-ST elevated myocardial infarction) ACS protocol: Serial cardiac enzymes, EKG, telemetry monitoring, serial EKG, cardiology team consulted. Patient pending cardiac cath in a.m. as per cardiology team. Pending nephrology evaluation morphine, supplemental oxygen, nitro, aspirin. -- Acute diastolic CHF Strict I/O, urine output every shift, daily weight, afterload reduction, blood pressure control, antiplatelet medications Echo LVEF 45 to 50%, 20 failure medications Cardiology following -- Elevated LFTs Supportive care, repeat LFT in AM. Probably due to liver congestion Due to underlying cause CHF Closely monitor -- Hyperlipidemia Statin therapy, low-cholesterol diet supportive care. -- Hypothyroidism- Continue Synthroid therapy, supportive care. -Elevated D-dimers low probability for PE on VQ scan Check lower extremity venous Doppler --constipation, Plenty of oral fluids, milk of magnesia, Dulcolax suppository Closely monitor -- DVT prophylaxis SCD to bilateral lower extremities while in bed, continue therapeutic anticoagulation -- Advance care planning Disease education data, care plan discussed, diagnosis discussed, prognosis discussed, patient is full code. Patient acknowledges understanding and agreement with care plan, +30 minutes. -- Preventative health care Patient counseled regarding cardiac risk factor reduction, balanced diet, meal planning, outpatient follow-up with primary care physician for all age and risk factor appropriate screening test. +30 minutes. We will closely monitor the patient and adjust management as needed Plan of care reviewed with the patient and her nurse Skills Instructor recommendations noted and appreciated History Interval history: I have seen and examined the patient at the bedside Patient's chart and medications reviewed Patient was admitted with chest pain Awaiting left heart cath, however patient has worsening renal function Pending nephrology evaluation Patient anxious to go home Anxious to have the test Denies any chest pain or shortness of breath Vital signs noted Hospitalist Physical - Constitutional Vitals: Temp Pulse Resp BP Pulse Ox 98.2 F 64 16 106/70 98 08/12/21 03:54 08/12/21 12:00 08/12/21 03:54 08/12/21 03:54 08/12/21 10:00 General appearance: Present: no acute distress, mild distress, well-nourished - EENT Eyes: Present: PERRL, EOM intact - Neck Neck: Present: supple, normal ROM - Respiratory Respiratory effort: normal Respiratory: bilateral: diminished, negative: rales, rhonchi, wheezing - Cardiovascular Rhythm: regular Heart Sounds: Present: S1 & S2 - Extremities Extremities: no ischemia, No edema - Abdominal General gastrointestinal: soft, non-tender, non-distended, normal bowel sounds - Integumentary Integumentary: Present: clear, warm - Psychiatric Psychiatric: appropriate mood/affect, cooperative - Neurologic Neurologic: CNII-XII intact, moves all extremities HEART Score - HEART Score EKG: Non-specific Age: > 65 Risk factors: 1-2 risk factors Troponin: Troponin T 0.093 ng/mL (0.00-0.029) H 08/10/21 23:30 Troponin: 1-3x normal limit Results - Labs CBC & Chem 7: 08/12/21 03:50 08/12/21 03:50 Labs: Laboratory Last Values WBC 6.2 K/mm3 (4.5-11.0) 08/12/21 03:50 RBC 4.73 M/mm3 (3.65-5.03) 08/12/21 03:50 Hgb 12.9 gm/dl (10.1-14.3) 08/12/21 03:50 Hct 39.8 % (30.3-42.9) 08/12/21 03:50 MCV 84 fl (79-97) 08/12/21 03:50 MCH 27 pg (28-32) L 08/12/21 03:50 MCHC 33 % (30-34) 08/12/21 03:50 RDW 14.4 % (13.2-15.2) 08/12/21 03:50 Plt Count 171 K/mm3 (140-440) 08/12/21 03:50 Lymph % (Auto) 19.5 % (13.4-35.0) 08/12/21 03:50 [place] % (Auto) 12.3 % (0.0-7.3) H 08/12/21 03:50 Eos % (Auto) 3.5 % (0.0-4.3) 08/12/21 03:50 Baso % (Auto) 0.6 % (0.0-1.8) 08/12/21 03:50 Lymph # (Auto) 1.2 K/mm3 (1.2-5.4) 08/12/21 03:50 [place] # (Auto) 0.8 K/mm3 (0.0-0.8) 08/12/21 03:50 Eos # (Auto) 0.2 K/mm3 (0.0-0.4) 08/12/21 03:50 Baso # (Auto) 0.0 K/mm3 (0.0-0.1) 08/12/21 03:50 Add Manual Diff Complete 08/11/21 06:55 Seg Neutrophils % 64.1 % (40.0-70.0) 08/12/21 03:50 Seg Neutrophils # 4.0 K/mm3 (1.8-7.7) 08/12/21 03:50 PT 13.9 Sec. (12.2-14.9) 08/12/21 03:50 INR 0.97 (0.87-1.13) 08/12/21 03:50 APTT 146.0 Sec. (24.2-36.6) H* 08/11/21 22:18 D-Dimer 1104.65 ng/mlDDU (0-234) H 08/10/21 Unknown Heparin Anti-Xa Level 0.98 U.I./ml (0.3-0.7) H 08/12/21 03:50 Sodium 131 mmol/L (137-145) L 08/12/21 03:50 Potassium 3.5 mmol/L (3.6-5.0) L 08/12/21 03:50 Chloride 95.7 mmol/L (98-107) L 08/12/21 03:50 Carbon Dioxide 21 mmol/L (22-30) L 08/12/21 03:50 Anion Gap 18 mmol/L 08/12/21 03:50 BUN 48 mg/dL (7-17) H 08/12/21 03:50 Creatinine 2.3 mg/dL (0.6-1.2) H 08/12/21 03:50 Estimated GFR 26 ml/min 08/12/21 03:50 BUN/Creatinine Ratio 21 % 08/12/21 03:50 Glucose 126 mg/dL (65-100) H 08/12/21 03:50 POC Glucose 95 mg/dL (70-105) 08/12/21 16:57 Calcium 9.4 mg/dL (8.4-10.2) 08/12/21 03:50 Total Bilirubin 0.60 mg/dL (0.1-1.2) 08/10/21 10:56 AST 67 units/L (5-40) H 08/10/21 10:56 ALT 124 units/L (7-56) H 08/10/21 10:56 Alkaline Phosphatase 151 units/L (35-129) H 08/10/21 10:56 Troponin T 0.093 ng/mL (0.00-0.029) H 08/10/21 23:30 Total Protein 8.1 g/dL (6.3-8.2) 08/10/21 10:56 Albumin 4.3 g/dL (3.9-5) 08/10/21 10:56 Albumin/Globulin Ratio 1.1 % 08/10/21 10:56 Triglycerides 102 mg/dL (2-149) 08/10/21 10:56 Cholesterol 203 mg/dL (50-199) H 08/10/21 10:56 LDL Cholesterol Direct 104 mg/dL (50-130) 08/10/21 10:56 HDL Cholesterol 73 mg/dL (40-59) H 08/10/21 10:56 Cholesterol/HDL Ratio 2.78 % 08/10/21 10:56 Cervantes/IV: Voiding Method Toilet Active Medications - Current Medications Current Medications: Generic Name Dose Route Start Last Admin Trade Name Freq PRN Reason Stop Dose Admin Acetaminophen 650 mg 08/10/21 17:20 08/12/21 03:35 Acetaminophen 325 Mg Tab PO 650 mg Q4H PRN Administration Pain MILD(1-3)/Fever >100.5/MANTILLA Albuterol 2.5 mg 08/10/21 17:20 Albuterol 2.5 Mg/3 Ml Nebu IH Q4HRT PRN Shortness Of Breath Amlodipine Besylate 10 mg 08/11/21 10:00 08/12/21 09:44 Amlodipine 10 Mg Tab PO 10 mg QDAY KALE Administration Aspirin 81 mg 08/11/21 10:00 08/12/21 09:44 Aspirin 81 Mg Tab Chew PO 81 mg DAILY KALE Administration Atorvastatin Calcium 80 mg 08/10/21 22:00 08/11/21 20:59 Atorvastatin 40 Mg Tab PO 80 mg QHS KALE Administration Bisacodyl 10 mg 08/11/21 16:24 08/12/21 18:47 Bisacodyl 5 Mg Tab PO 10 mg QDAY PRN Administration Constipation Bisacodyl 10 mg 08/12/21 18:46 Bisacodyl 10 Mg Rect Supp PA 08/12/21 18:47 ONCE ONE Famotidine 10 mg 08/11/21 10:00 08/12/21 09:44 Famotidine 10 Mg Tab PO 10 mg BID KALE Administration Gabapentin 300 mg 08/10/21 20:00 08/12/21 13:48 Gabapentin 300 Mg Cap PO 300 mg TID KALE Administration Heparin Sodium (Porcine) 3,000 unit 08/11/21 10:00 08/11/21 10:31 Heparin 10,000 Units/10 Ml Vial 40 unit/kg (3000 unit) 3,000 unit IV Administration Q6H PRN Anti-Xa Assay < 0.1 units/ml Hydralazine HCl 50 mg 08/10/21 22:00 08/12/21 09:46 Hydralazine 25 Mg Tab PO Not Given BID KALE Heparin Sodium/Sodium Chloride 25,000 unit in 500 mls @ 20 mls/hr 08/11/21 10:00 08/12/21 08:15 Heparin/ 0.45% Nacl-25,000 Unit/500 Ml IV 750 units/hr TITRATE KALE 15 mls/hr Administration Protocol 1,000 UNITS/HR Sodium Chloride 1,000 mls @ 50 mls/hr 08/12/21 10:30 08/12/21 13:48 Nacl 0.9% 1000 Ml IV 50 mls/hr DIRECT KALE Administration Isosorbide Mononitrate 30 mg 08/11/21 10:00 08/12/21 09:46 Isosorbide Mononitrate Er 30 Mg Tab PO Not Given QDAY [facility] Levothyroxine Sodium 100 mcg 08/11/21 10:00 08/12/21 09:47 Levothyroxine 100 Mcg Tab PO 100 mcg DAILY KALE Administration Magnesium Hydroxide 30 ml 08/12/21 18:46 Magnesium Hydroxide (Mom) Oral Liqd Udc PO 08/12/21 18:47 ONCE ONE Magnesium Hydroxide 30 ml 08/12/21 18:46 Magnesium Hydroxide (Mom) Oral Liqd Udc PO QDAY PRN Constipation Morphine Sulfate 2 mg 08/10/21 17:20 08/12/21 18:50 Morphine 4 Mg/1 Ml Inj IV 2 mg Q8H PRN Administration Pain , Severe (7-10) Nitroglycerin 0.4 mg 08/10/21 17:20 Nitroglycerin 0.4 Mg Tab Subl SL .Q5MIN PRN Chest Pain Ondansetron HCl 4 mg 08/10/21 17:20 Ondansetron 4 Mg/2 Ml Inj IV Q8H PRN Nausea And Vomiting Oxycodone/Acetaminophen 1 tab 08/10/21 17:20 08/12/21 13:48 Oxycodone /Acetaminophen 5-325mg Tab PO 1 tab Q6H PRN Administration Pain, Moderate (4-6) Polyethylene Glycol 17 gm 08/11/21 17:00 08/12/21 09:45 Polyethylene Glycol 3350 17 Gm Powder PO 17 gm QDAY KALE Administration Sodium Chloride 10 ml 08/10/21 22:00 08/12/21 09:46 Sodium Chloride 0.9% 10 Ml Flush Syringe IV 10 ml BID KALE Administration Sodium Chloride 10 ml 08/10/21 17:20 Sodium Chloride 0.9% 10 Ml Flush Syringe IV PRN PRN LINE FLUSH Spironolactone 25 mg 08/11/21 10:00 08/12/21 09:45 Spironolactone 25 Mg Tab PO 25 mg QDAY KALE Administration
[2021-08-13] MEDS: MORPHINE 4 MG/1 ML INJ IV PRN ×3 (00:24→18:18)
[2021-08-13 04:47] LABS: Basophils % (Auto) 0.5 % (0.0-1.8); Eosinophils # (Auto) 0.3 K/mm3 (0.0-0.4); Eosinophils % (Auto) 4.8 % (0.0-4.3); Hematocrit 38.6 % (30.3-42.9); Hemoglobin 12.5 gm/dl (10.1-14.3); Lymphocytes # (Auto) 1.1 K/mm3 (1.2-5.4); Lymphocytes % (Auto) 17.9 % (13.4-35.0); Mean Corpuscular HGB Conc 33 % (30-34); Mean Corpuscular Volume 84 fl (79-97); Monocytes # (Auto) 0.9 K/mm3 (0.0-0.8); Monocytes % (Auto) 14.5 % (0.0-7.3); Platelet Count 190 K/mm3 (140-440); Red Blood Count 4.58 M/mm3 (3.65-5.03); Red Cell Distribution Width 14.5 % (13.2-15.2)
[2021-08-13 04:49] LABS: Calcium 9.6 mg/dL (8.4-10.2)
[2021-08-13 05:00] LABS: INR 0.87 (0.87-1.13)
--- NOTE | 2021-08-13 08:58 | Progress Note ---
Assessment and Plan Patient is a 66-year-old AA female with a hx of [place], CAD s/p PCI of OM1 in 2010, dilated CMP, CKDIII/IV, malignant HTN, and h/o ICH who presented with complaints of chest pain x 1 day. Chest Pain NSTEMI Hypertensive Urgency CAD s/p [place] s/p PCI on OM1 (2010) Dilated CMP CKD III/IV HTN Hypothyroidism H/o ICH H/o Gastric Ulcer H/o Tobacco Use Elevated D-dimer (VQ scan low prob for PE 08/10/21) Echocardiogram 08/08/2021 - LVEF 45-50%. Mild LVH. Mild inferior wall hypokinesis. Normal RVSF. Aneurysmal atrial septum. 12/20/2020 - LVEF 25-30%. Inferior/inferolateral/anterolateral/inferior septal wall hypokinesis. Atrial septal aneurysm present without PFO. RA mildly dilated. RV mildly hypokinetic. Left Heart Cath 11/2016 - Normal sized left ventricle with normal contractility with patent stent in the obtuse marginal branch and also haziness and 50% lesion at the ostium of this vessel. Considering the angiographic pictures, it was felt that the patient can be continued on medical therapy. The lesion in the obtuse marginal branches is at the ostium and close to the main circumflex artery. This is a medium sized vessel. Previous evaluation by nuclear imaging showed evidence of scar in this area. Lexiscan Stress MPI 08/07/2021 - No evidence of reversible defects. Probable scar in the inferior and inferolateral area. Moderately decreased LVEF. Outpatient medications: ASA 325mg daily, Atorvastatin 80mg nightly, Lopressor 100mg TID, Clonidine 0.3mg TID, Amlodipine 10mg daily, Imdur 30mg daily, Hydralazine 25mg TID, HCTZ 25mg daily Plan: Patient has yet to be seen by nephrology. Creatinine is still 1.8 today Continue gentle IV fluid Await nephrology consultation. Discontinue IV heparin. Continue aspirin and statin therapy. Patient is chest pain-free and stable for now. Plan for cardiac catheterization tomorrow morning if creatinine is stable and nephrology has cleared. I have discussed this with patient at length. Subjective Date of service: 08/13/21 Principal diagnosis: chest pain Interval history: No chest pain overnight. No issues. Objective Vital Signs Temp Pulse Resp BP BP Pulse Ox 08/13/21 04:55 99.5 F 99 H 18 150/86 96 08/12/21 22:00 98 08/12/21 21:54 95 H 150/104 08/12/21 20:52 99.0 F 95 H 20 150/104 98 08/12/21 20:30 97 08/12/21 13:40 115/80 08/12/21 12:00 64 08/12/21 10:00 98 08/12/21 09:18 97 - Physical Examination General: No Apparent Distress HEENT: Positive: EOMI, Normocephaly Neck: Negative: JVD/HJR Neuro: Positive: Grossly Intact Abdomen: Positive: Soft. Negative: Tender Skin: Negative: Rash Musculoskeletal: Normal Range of Motion, other (hip pain // sciatica) Extremities: Present: warm. Absent: edema - Labs and Meds Coagulation 08/13/21 Range/Units 03:57 PT 12.8 (12.2-14.9) Sec. INR 0.87 (0.87-1.13) CBC 08/13/21 Range/Units 03:57 WBC 6.4 (4.5-11.0) K/mm3 RBC 4.58 (3.65-5.03) M/mm3 Hgb 12.5 (10.1-14.3) gm/dl Hct 38.6 (30.3-42.9) % Plt Count 190 (140-440) K/mm3 Lymph # (Auto) 1.1 L (1.2-5.4) K/mm3 [place] # (Auto) 0.9 H (0.0-0.8) K/mm3 Eos # (Auto) 0.3 (0.0-0.4) K/mm3 Baso # (Auto) 0.0 (0.0-0.1) K/mm3 Comprehensive Metabolic Panel 08/13/21 Range/Units 03:57 Sodium 133 L (137-145) mmol/L Potassium 3.2 L (3.6-5.0) mmol/L Chloride 98.8 (98-107) mmol/L Carbon Dioxide 23 (22-30) mmol/L BUN 34 H (7-17) mg/dL Creatinine 1.8 H (0.6-1.2) mg/dL Glucose 130 H (65-100) mg/dL Calcium 9.6 (8.4-10.2) mg/dL - Imaging and Cardiology EKG: report reviewed, image reviewed Echo: report reviewed Cardiac cath: report reviewed - EKG Sinus rhythms and dysrhythmias: sinus rhythm
[2021-08-13] MEDS: amLODIPine 10 MG TAB PO SCH (09:54)
[2021-08-13] MEDS: GABAPENTIN 300 MG CAP PO SCH (09:55)
[2021-08-13] MEDS: FAMOTIDINE 10 MG TAB PO SCH ×2 (09:55→21:27)
[2021-08-13] MEDS: LEVOTHYROXINE 100 MCG TAB PO SCH (09:55)
[2021-08-13] MEDS: POLYETHYLENE GLYCOL 3350 17 GM POWDER PO SCH ×2 (09:55→14:05)
[2021-08-13] MEDS: hydrALAZINE 25 MG TAB PO SCH ×2 (09:55→21:27)
[2021-08-13] MEDS: ASPIRIN 81 MG TAB CHEW PO SCH (09:55)
[2021-08-13] MEDS: SPIRONOLACTONE 25 MG TAB PO SCH (09:55)
--- NOTE | 2021-08-13 10:45 | Consultation ---
History of Present Illness - Reason for Consult Consult date: 08/13/21 - History of Present Illness 66yr F recently discharged & readmitted on 08/10/21 c/o CP. Pt has h/o CAD, LA s/p PCI of CHANEL 2010, Hypothyroidism, Sciatica with persistent pain hip & LEs. Pt admitted c/o CP & w/u last admission unremarkable. Pt also has anormal renal fxn with eGFR mid 30s suggesting CKD3 but pt says she's not followed up with renal & has no Engraver Tender. BUN/Cr 30/1.7 on admission worsened to 48/2.3 but improved to 34/1.8 today. Cardiology plans Cardiac Cath in am Past History Past Medical History: acute LA, CAD, hypertension, hyperlipidemia, hypothyroidism, renal failure, other (ICH) Past Surgical History: cholecystectomy, PTCA. denies: CABG Social history: smoking (former). denies: alcohol abuse Family history: other (HF (mother & father)) Medications and Allergies Allergies Allergy/AdvReac Type Severity Reaction Status Date / Time blue dye Allergy Vomiting Verified 05/21/21 22:38 Iodinated Contrast Media Allergy Vomiting Verified 05/21/21 22:38 [Iodinated Contrast- Oral and IV Dye] VEIN DYE Allergy Vomiting Uncoded 05/21/21 22:38 Home Medications Medication Instructions Recorded Confirmed Last Taken Type HYDROcodone/APAP 5-325 [Berkley 1 each PO Q6HR PRN #10 tablet 05/12/16 08/11/21 08/09/21 21:00 Rx 5-325 mg TAB] AtorvaSTATin [Lipitor] 80 mg PO QHS 11/19/17 08/11/21 08/09/21 21:45 History Levothyroxine [Synthroid] 100 mcg PO DAILY 11/19/17 08/11/21 08/09/21 08:45 History Metoprolol [Lopressor TAB] 100 mg PO BID 11/19/17 08/11/21 08/09/21 21:00 Histo ry cloNIDine HCL [Catapres] 0.3 mg PO BID #30 tablet 02/27/18 08/11/21 08/09/21 21:00 Rx Diclofenac 1% [Diclofenac 1% 1 applic TP QID PRN #1 tube 08/18/19 08/11/21 08/09/21 21:00 Rx topical gel] Aspirin EC [Halfprin EC] 81 mg PO QDAY 30 Days #30 tablet 12/23/20 08/11/21 08/09/21 22:00 Rx Clopidogrel [Plavix] 75 mg PO QDAY 30 Days #30 tablet 12/23/20 Unknown Rx Gabapentin 300 mg PO TID 12/23/20 08/11/21 08/09/21 22:00 History amLODIPine 10 mg PO QDAY 30 Days #30 tablet 12/23/20 08/11/21 08/09/21 08:45 Rx hydrALAZINE [Apresoline TAB] 50 mg PO BID 30 Days #30 tablet 12/23/20 08/11/21 08/09/21 21:00 Rx ISOSORBIDE MONOnitrate [Imdur ER] 30 mg PO QDAY #30 tablet 08/08/21 08/11/21 08/09/21 20:45 Rx Spironolactone [Aldactone] 25 mg PO QDAY #30 tablet 08/08/21 08/11/21 08/09/21 Rx Levothyroxine [Synthroid] 150 mcg PO QAM 08/13/21 08/13/21 Unknown History Metoprolol [Lopressor] 100 mg PO TID 08/13/21 08/13/21 Unknown History Ondansetron [Zofran ODT TAB] 8 mg PO Q8HR PRN 08/13/21 08/13/21 Unknown History amLODIPine [Norvasc] 5 mg PO DAILY 08/13/21 08/13/21 Unknown History cloNIDine HCL [Clonidine HCl] 0.3 mg PO TID 08/13/21 08/13/21 Unknown History hydroCHLOROthiazide [HCTZ] 25 mg PO QDAY 08/13/21 08/13/21 Unknown History Active Meds: Active Medications Acetaminophen (Acetaminophen 325 Mg Tab) 650 mg PO Q4H PRN PRN Reason: Pain MILD(1-3)/Fever >100.5/MANTILLA Last Admin: 08/12/21 03:35 Dose: 650 mg Albuterol (Albuterol 2.5 Mg/3 Ml Nebu) 2.5 mg IH Q4HRT PRN PRN Reason: Shortness Of Breath Amlodipine Besylate (Amlodipine 10 Mg Tab) 10 mg PO QDAY [facility] [place] Last Admin: 08/13/21 09:54 Dose: 10 mg Aspirin (Aspirin 81 Mg Tab Chew) 81 mg PO DAILY [facility] [place] Last Admin: 08/13/21 09:55 Dose: 81 mg Atorvastatin Calcium (Atorvastatin 40 Mg Tab) 80 mg PO QHS [facility] [place] Last Admin: 08/12/21 21:54 Dose: 80 mg Bisacodyl (Bisacodyl 5 Mg Tab) 10 mg PO QDAY PRN PRN Reason: Constipation Last Admin: 08/12/21 18:47 Dose: 10 mg Famotidine (Famotidine 10 Mg Tab) 10 mg PO BID [facility] [place] Last Admin: 08/13/21 09:55 Dose: 10 mg Gabapentin (Gabapentin 300 Mg Cap) 300 mg PO TID [facility] [place] Last Admin: 08/13/21 09:55 Dose: 300 mg Heparin Sodium (Porcine) (Heparin 10,000 Units/10 Ml Vial) 3,000 unit 40 unit/kg (3000 unit) IV Q6H PRN PRN Reason: Anti-Xa Assay < 0.1 units/ml Last Admin: 08/11/21 10:31 Dose: 3,000 unit Hydralazine HCl (Hydralazine 25 Mg Tab) 50 mg PO BID [facility] [place] Last Admin: 08/13/21 09:55 Dose: 50 mg Sodium Chloride (Nacl 0.9% 1000 Ml) 1,000 mls @ 50 mls/hr IV DIRECT [facility] [place] Last Admin: 08/12/21 13:48 Dose: 50 mls/hr Isosorbide Mononitrate (Isosorbide Mononitrate Er 30 Mg Tab) 30 mg PO QDAY [facility] [place] Last Admin: 08/13/21 09:55 Dose: 30 mg Levothyroxine Sodium (Levothyroxine 100 Mcg Tab) 100 mcg PO DAILY [facility] [place] Last Admin: 08/13/21 09:55 Dose: 100 mcg Magnesium Hydroxide (Magnesium Hydroxide (Mom) Oral Liqd Udc) 30 ml PO QDAY PRN PRN Reason: Constipation Morphine Sulfate (Morphine 4 Mg/1 Ml Inj) 2 mg IV Q8H PRN PRN Reason: Pain , Severe (7-10) Last Admin: 08/13/21 09:50 Dose: 2 mg Nitroglycerin (Nitroglycerin 0.4 Mg Tab Subl) 0.4 mg SL .Q5MIN PRN PRN Reason: Chest Pain Ondansetron HCl (Ondansetron 4 Mg/2 Ml Inj) 4 mg IV Q8H PRN PRN Reason: Nausea And Vomiting Oxycodone/Acetaminophen (Oxycodone /Acetaminophen 5-325mg Tab) 1 tab PO Q6H PRN PRN Reason: Pain, Moderate (4-6) Last Admin: 08/12/21 22:00 Dose: 1 tab Polyethylene Glycol (Polyethylene Glycol 3350 17 Gm Powder) 17 gm PO QDAY [facility] [place] Last Admin: 08/13/21 09:55 Dose: 17 gm Sodium Chloride (Sodium Chloride 0.9% 10 Ml Flush Syringe) 10 ml IV BID [facility] [place] Last Admin: 08/13/21 09:56 Dose: 10 ml Sodium Chloride (Sodium Chloride 0.9% 10 Ml Flush Syringe) 10 ml IV PRN PRN PRN Reason: LINE FLUSH Spironolactone (Spironolactone 25 Mg Tab) 25 mg PO QDAY [facility] [place] Last Admin: 08/13/21 09:55 Dose: 25 mg Review of Systems Constitutional: other (C/o persistent Generalized pain) Ears, nose, mouth and throat: no nasal congestion, no sore throat Cardiovascular: chest pain, no orthopnea, no palpitations, no edema, no leg edema Respiratory: no cough, no shortness of breath Gastrointestinal: no abdominal pain, no nausea, no vomiting Exam - Vital Signs Vital signs: Vital Signs Temp Pulse Resp Pulse Ox 98.4 F 110 H 16 99 08/10/21 08:15 08/10/21 08:15 08/10/21 08:15 08/10/21 08:15 - General Appearance General appearance: other (Awake & in moderate distress) EENT: PERRL, hearing intact Neck: Present: neck supple. Absent: JVD/HJR Respiratory: Other (Good air entry) Heart: regular, S1S2 Gastrointestinal: Present: normal Integumentary: no rash Neurologic: no focal deficit, alert and oriented x3 Psychiatric: mood/affect appropriate Results - Lab Results 08/13/21 03:57 08/13/21 03:57 Most recent lab results Calcium 9.6 mg/dL (8.4-10.2) 08/13/21 03:57 Assessment and Plan Acute on CKD -Likely prerenal azotemia ?2/2 Dehydration superimposed on CKD stage3 HypoKalemia CP - Pt understands the attendant risks following Cardiac Cath including possible worsening renal fxn. I explained the pre-emptive Mx employed at this time including IVF & medication adjustment. Pt agreed to proceed with Cath HTN - F/u on meds Plan: Agree with IVF NS, increase rate & f/u closely Replenish K, f/u Mg, Phos Decrease Gabapentin dose May proceed with Cath & continue IVF through proceedure Thanks very much, will f/u with you
[2021-08-13] MEDS: oxyCODONE /ACETAMINOPHEN 5-325MG TAB PO PRN ×2 (11:24→19:46)
[2021-08-13] MEDS: SODIUM CHLORIDE 0.9% 1000 ML 1,000 ML IV SCH (11:27)
[2021-08-13] MEDS: ACETAMINOPHEN 325 MG TAB PO PRN (13:33)
[2021-08-13] MEDS: POTASSIUM CHLORIDE 10 MEQ 10 MEQ/100 ML BAG IV SCH ×2 (13:33→14:13)
--- NOTE | 2021-08-13 16:48 | Progress Note ---
Assessment and Plan Assessment and plan: This Is a 66-year-old female with a history of chronic pain syndrome on pain management, history of coronary disease with stent placement, cardiomyopathy, CKD who was recently discharged from the hospital 2 days ago after being worked up for the chest pain and with a negative stress test, comes back again with complaint of chest pain. 08/11: Creatinine trended up, plan for cardiac cath. Cardiology recommended to consult nephrology for renal clearance to proceed with cardiac cath. Nephrology has been consulted, repeat BMP and LFTs tomorrow. Patient placed on heparin drip, continue to follow clinically. 08/12; worsening renal function, nephrology consulted, follow renal and cardiology recommendations Left heart catheterization rescheduled due to worsening renal function 08/13/2021 due for health cath tomorrow . Cath is negative and patient is stable may be discharged home tomorrow Assessment and plan: -- NSTEMI (non-ST elevated myocardial infarction) ACS protocol: Serial cardiac enzymes, EKG, telemetry monitoring, serial EKG, cardiology team consulted. Patient pending cardiac cath in a.m. as per cardiology team. Pending nephrology evaluation morphine, supplemental oxygen, nitro, aspirin. -- Acute diastolic CHF Strict I/O, urine output every shift, daily weight, afterload reduction, blood pressure control, antiplatelet medications Echo LVEF 45 to 50%, 20 failure medications Cardiology following -- Elevated LFTs Supportive care, repeat LFT in AM. Probably due to liver congestion Due to underlying cause CHF Closely monitor -- Hyperlipidemia Statin therapy, low-cholesterol diet supportive care. -- Hypothyroidism- Continue Synthroid therapy, supportive care. -Elevated D-dimers low probability for PE on VQ scan Check lower extremity venous Doppler --constipation, Plenty of oral fluids, milk of magnesia, Dulcolax suppository Closely monitor -- DVT prophylaxis SCD to bilateral lower extremities while in bed, continue therapeutic anticoagulation -- Advance care planning Disease education data, care plan discussed, diagnosis discussed, prognosis discussed, patient is full code. Patient acknowledges understanding and agreement with care plan, +30 minutes. -- Preventative health care Patient counseled regarding cardiac risk factor reduction, balanced diet, meal planning, outpatient follow-up with primary care physician for all age and risk factor appropriate screening test. +30 minutes. We will closely monitor the patient and adjust management as needed Plan of care reviewed with the patient and her nurse Arterial Embalmer recommendations noted and appreciated History Interval history: I have seen and examined the patient at the bedside Patient's chart and medications reviewed No new events reported by nursing Patient's renal function slightly improved Vital signs noted Patient is scheduled for left heart catheterization tomorrow per cardiology N.p.o. from midnight Hospitalist Physical - Constitutional Vitals: Temp Pulse Resp BP Pulse Ox 99.0 F 97 H 18 127/89 99 08/13/21 13:31 08/13/21 13:31 08/13/21 13:31 08/13/21 13:31 08/13/21 13:31 General appearance: Present: no acute distress, mild distress, well-nourished - EENT Eyes: Present: PERRL, EOM intact - Neck Neck: Present: supple, normal ROM - Respiratory Respiratory effort: normal - Cardiovascular Rhythm: regular Heart Sounds: Present: S1 & S2 - Extremities Extremities: no ischemia, No edema - Abdominal General gastrointestinal: soft, non-tender, non-distended - Integumentary Integumentary: Present: clear, warm - Psychiatric Psychiatric: appropriate mood/affect - Neurologic Neurologic: CNII-XII intact, moves all extremities HEART Score - HEART Score EKG: Non-specific Age: > 65 Risk factors: 1-2 risk factors Troponin: Troponin T 0.093 ng/mL (0.00-0.029) H 08/10/21 23:30 Troponin: 1-3x normal limit Results - Labs CBC & Chem 7: 08/13/21 03:57 08/13/21 03:57 Labs: Laboratory Last Values WBC 6.4 K/mm3 (4.5-11.0) 08/13/21 03:57 RBC 4.58 M/mm3 (3.65-5.03) 08/13/21 03:57 Hgb 12.5 gm/dl (10.1-14.3) 08/13/21 03:57 Hct 38.6 % (30.3-42.9) 08/13/21 03:57 MCV 84 fl (79-97) 08/13/21 03:57 MCH 27 pg (28-32) L 08/13/21 03:57 MCHC 33 % (30-34) 08/13/21 03:57 RDW 14.5 % (13.2-15.2) 08/13/21 03:57 Plt Count 190 K/mm3 (140-440) 08/13/21 03:57 Lymph % (Auto) 17.9 % (13.4-35.0) 08/13/21 03:57 Story % (Auto) 14.5 % (0.0-7.3) H 08/13/21 03:57 Eos % (Auto) 4.8 % (0.0-4.3) H 08/13/21 03:57 Baso % (Auto) 0.5 % (0.0-1.8) 08/13/21 03:57 Lymph # (Auto) 1.1 K/mm3 (1.2-5.4) L 08/13/21 03:57 Story # (Auto) 0.9 K/mm3 (0.0-0.8) H 08/13/21 03:57 Eos # (Auto) 0.3 K/mm3 (0.0-0.4) 08/13/21 03:57 Baso # (Auto) 0.0 K/mm3 (0.0-0.1) 08/13/21 03:57 Add Manual Diff Complete 08/11/21 06:55 Seg Neutrophils % 62.3 % (40.0-70.0) 08/13/21 03:57 Seg Neutrophils # 4.0 K/mm3 (1.8-7.7) 08/13/21 03:57 PT 12.8 Sec. (12.2-14.9) 08/13/21 03:57 INR 0.87 (0.87-1.13) 08/13/21 03:57 APTT 146.0 Sec. (24.2-36.6) H* 08/11/21 22:18 D-Dimer 1104.65 ng/mlDDU (0-234) H 08/10/21 Unknown Heparin Anti-Xa Level 0.38 U.I./ml (0.3-0.7) 08/13/21 03:57 Sodium 133 mmol/L (137-145) L 08/13/21 03:57 Potassium 3.2 mmol/L (3.6-5.0) L 08/13/21 03:57 Chloride 98.8 mmol/L (98-107) 08/13/21 03:57 Carbon Dioxide 23 mmol/L (22-30) 08/13/21 03:57 Anion Gap 14 mmol/L 08/13/21 03:57 BUN 34 mg/dL (7-17) H 08/13/21 03:57 Creatinine 1.8 mg/dL (0.6-1.2) H 08/13/21 03:57 Estimated GFR 34 ml/min 08/13/21 03:57 BUN/Creatinine Ratio 19 % 08/13/21 03:57 Glucose 130 mg/dL (65-100) H 08/13/21 03:57 POC Glucose 138 mg/dL (70-105) H 08/13/21 12:03 Calcium 9.6 mg/dL (8.4-10.2) 08/13/21 03:57 Total Bilirubin 0.60 mg/dL (0.1-1.2) 08/10/21 10:56 AST 67 units/L (5-40) H 08/10/21 10:56 ALT 124 units/L (7-56) H 08/10/21 10:56 Alkaline Phosphatase 151 units/L (35-129) H 08/10/21 10:56 Troponin T 0.093 ng/mL (0.00-0.029) H 08/10/21 23:30 Total Protein 8.1 g/dL (6.3-8.2) 08/10/21 10:56 Albumin 4.3 g/dL (3.9-5) 08/10/21 10:56 Albumin/Globulin Ratio 1.1 % 08/10/21 10:56 Triglycerides 102 mg/dL (2-149) 08/10/21 10:56 Cholesterol 203 mg/dL (50-199) H 08/10/21 10:56 LDL Cholesterol Direct 104 mg/dL (50-130) 08/10/21 10:56 HDL Cholesterol 73 mg/dL (40-59) H 08/10/21 10:56 Cholesterol/HDL Ratio 2.78 % 08/10/21 10:56 Cervantes/IV: Voiding Method Toilet Active Medications - Current Medications Current Medications: Generic Name Dose Route Start Last Admin Trade Name Freq PRN Reason Stop Dose Admin Acetaminophen 650 mg 08/10/21 17:20 08/13/21 13:33 Acetaminophen 325 Mg Tab PO 650 mg Q4H PRN Administration Pain MILD(1-3)/Fever >100.5/MANTILLA Albuterol 2.5 mg 08/10/21 17:20 Albuterol 2.5 Mg/3 Ml Nebu IH Q4HRT PRN Shortness Of Breath Amlodipine Besylate 10 mg 08/11/21 10:00 08/13/21 09:54 Amlodipine 10 Mg Tab PO 10 mg QDAY KALE Administration Aspirin 81 mg 08/11/21 10:00 08/13/21 09:55 Aspirin 81 Mg Tab Chew PO 81 mg DAILY KALE Administration Atorvastatin Calcium 80 mg 08/10/21 22:00 08/12/21 21:54 Atorvastatin 40 Mg Tab PO 80 mg QHS KALE Administration Bisacodyl 10 mg 08/11/21 16:24 08/12/21 18:47 Bisacodyl 5 Mg Tab PO 10 mg QDAY PRN Administration Constipation Famotidine 10 mg 08/11/21 10:00 08/13/21 09:55 Famotidine 10 Mg Tab PO 10 mg BID KALE Administration Gabapentin 100 mg 08/13/21 22:00 Gabapentin 100 Mg Cap PO QHS KALE Heparin Sodium (Porcine) 3,000 unit 08/11/21 10:00 08/11/21 10:31 Heparin 10,000 Units/10 Ml Vial 40 unit/kg (3000 unit) 3,000 unit IV Administration Q6H PRN Anti-Xa Assay < 0.1 units/ml Hydralazine HCl 50 mg 08/10/21 22:00 08/13/21 09:55 Hydralazine 25 Mg Tab PO 50 mg BID KALE Administration Sodium Chloride 1,000 mls @ 100 mls/hr 08/12/21 10:30 08/13/21 11:34 Nacl 0.9% 1000 Ml IV 100 mls/hr DIRECT KALE Infusion Isosorbide Mononitrate 30 mg 08/11/21 10:00 08/13/21 09:55 Isosorbide Mononitrate Er 30 Mg Tab PO 30 mg QDAY KALE Administration Levothyroxine Sodium 100 mcg 08/11/21 10:00 08/13/21 09:55 Levothyroxine 100 Mcg Tab PO 100 mcg DAILY KALE Administration Magnesium Hydroxide 30 ml 08/12/21 18:46 Magnesium Hydroxide (Mom) Oral Liqd Udc PO QDAY PRN Constipation Morphine Sulfate 2 mg 08/10/21 17:20 08/13/21 09:50 Morphine 4 Mg/1 Ml Inj IV 2 mg Q8H PRN Administration Pain , Severe (7-10) Nitroglycerin 0.4 mg 08/10/21 17:20 Nitroglycerin 0.4 Mg Tab Subl SL .Q5MIN PRN Chest Pain Ondansetron HCl 4 mg 08/10/21 17:20 Ondansetron 4 Mg/2 Ml Inj IV Q8H PRN Nausea And Vomiting Oxycodone/Acetaminophen 1 tab 08/10/21 17:20 08/13/21 11:24 Oxycodone /Acetaminophen 5-325mg Tab PO 1 tab Q6H PRN Administration Pain, Moderate (4-6) Polyethylene Glycol 17 gm 08/11/21 17:00 08/13/21 14:05 Polyethylene Glycol 3350 17 Gm Powder PO Not Given QDAY KALE Sodium Chloride 10 ml 08/10/21 22:00 08/13/21 09:56 Sodium Chloride 0.9% 10 Ml Flush Syringe IV 10 ml BID KALE Administration Sodium Chloride 10 ml 08/10/21 17:20 Sodium Chloride 0.9% 10 Ml Flush Syringe IV PRN PRN LINE FLUSH Spironolactone 25 mg 08/11/21 10:00 08/13/21 09:55 Spironolactone 25 Mg Tab PO 25 mg QDAY KALE Administration
[2021-08-13] MEDS ORDERED: GABAPENTIN 300 MG CAP PO SCH (22:00)
[2021-08-13] MEDS ORDERED: GABAPENTIN 100 MG CAP PO SCH (22:00)
[2021-08-14] MEDS: SODIUM CHLORIDE 0.9% 1000 ML 1,000 ML IV SCH ×2 (01:25→14:36)
[2021-08-14] MEDS: MORPHINE 4 MG/1 ML INJ IV PRN ×2 (02:36→10:49)
[2021-08-14] MEDS: oxyCODONE /ACETAMINOPHEN 5-325MG TAB PO PRN ×2 (04:50→13:05)
[2021-08-14 05:26] LABS: INR 0.73 (0.87-1.13)
[2021-08-14 05:27] LABS: Hematocrit 40.7 % (30.3-42.9); Hemoglobin 12.8 gm/dl (10.1-14.3); Mean Corpuscular HGB Conc 31 % (30-34); Mean Corpuscular Volume 86 fl (79-97); Red Blood Count 4.73 M/mm3 (3.65-5.03); Red Cell Distribution Width 14.5 % (13.2-15.2)
[2021-08-14 05:28] LABS: Platelet Count 173 K/mm3 (140-440)
[2021-08-14 05:34] LABS: Calcium 10.5 mg/dL (8.4-10.2)
[2021-08-14] MEDS ORDERED: methylPREDNISolone Sod Succinate 125 MG/2 ML INJ IV NR (07:36)
[2021-08-14] MEDS ORDERED: diphenhydrAMINE 50 MG/ML VIAL IV NR (07:36)
[2021-08-14] MEDS ORDERED: FAMOTIDINE 20 MG/2 ML INJ IV NR (07:37)
[2021-08-14] MEDS ORDERED: HEPARIN/NS 5000 UNIT/500ML 1,000 ML IR ONE (08:01)
[2021-08-14] MEDS ORDERED: MIDAZOLAM 2 MG/2 ML INJ ONE (08:01)
[2021-08-14] MEDS ORDERED: HEPARIN 10,000 UNITS/10 ML VIAL ONE (08:01)
[2021-08-14] MEDS ORDERED: NITROGLYCERIN SYRINGE 3 ML ONE (08:02)
[2021-08-14] MEDS ORDERED: fentaNYL 100 MCG/2 ML INJ ONE (08:02)
[2021-08-14] MEDS ORDERED: LIDOCAINE (1%) 10 MG/1 ML VIAL 20 ML MDV ONE (08:02)
[2021-08-14] MEDS ORDERED: VERAPAMIL 5 MG/2 ML INJ ONE (08:02)
[2021-08-14] MEDS ORDERED: hydrALAZINE 20 MG/1 ML INJ ONE (08:55)
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
[2021-08-14] MEDS ORDERED: hydrALAZINE 20 MG/1 ML INJ IV NR (09:32)
[2021-08-14] MEDS ORDERED: traMADol 50 MG TAB PO PRN (10:00)
[2021-08-14] MEDS ORDERED: HYDROcodone/ACETAMINOPHEN 5-325 MG TAB PO PRN (10:00)
--- NOTE | 2021-08-14 10:20 | Electrocardiograph Report ---
[facility] Test Date: 2021-08-13 Test Time: 07:13:26 Pat Name: YOEL ORO Department: Room: A480 1 Gender: F Csw: DESTINY : 1955 Requested By: JUDE MONTANA Order Number: [id number] Reading MD: Vimal Fuentes Measurements Intervals [place] Rate: 87 P: 36 IN: 254 QRS: -56 QRSD: 127 T: 110 QT: 400 QTc: 481 Interpretive Statements Sinus rhythm Multiform ventricular premature complexes Prolonged IN interval Probable left atrial enlargement Left bundle branch block ST elevation secondary to IVCD Compared to ECG 08/12/2021 07:24:12 Intraventricular conduction delay now present ST (T wave) deviation now present Electronically Signed On 08-14-2021 10:19:54 EDT by Vimal Fuentes
--- NOTE | 2021-08-14 10:23 | Electrocardiograph Report ---
[facility] Test Date: 2021-08-14 Test Time: 07:11:38 Pat Name: YOEL ORO Department: Room: A480 1 Gender: F Garnisher: DESTINY : 1955 Requested By: LESLYE BINGHAM Order Number: [id number] Reading MD: Vimal Fuentes Measurements Intervals [place] Rate: 100 P: 34 WV: 200 QRS: -54 QRSD: 123 T: 112 QT: 376 QTc: 485 Interpretive Statements Sinus tachycardia Ventricular premature complex LVH with IVCD, LAD and secondary repol abnrm Anterior ST elevation, probably due to LVH Compared to ECG 08/13/2021 07:13:26 Left ventricular hypertrophy now present Early repolarization now present Sinus rhythm no longer present First degree AV block no longer present Left bundle-branch block no longer present ST (T wave) deviation still present Electronically Signed On 08-14-2021 10:23:39 EDT by Vimal Fuentes
[2021-08-14] MEDS: amLODIPine 10 MG TAB PO SCH (10:48)
[2021-08-14] MEDS: ASPIRIN 81 MG TAB CHEW PO SCH (10:48)
[2021-08-14] MEDS: FAMOTIDINE 10 MG TAB PO SCH (10:48)
[2021-08-14] MEDS: LEVOTHYROXINE 100 MCG TAB PO SCH (10:49)
[2021-08-14] MEDS: SPIRONOLACTONE 25 MG TAB PO SCH (10:49)
[2021-08-14] MEDS: hydrALAZINE 25 MG TAB PO SCH (10:49)
[2021-08-14] MEDS ORDERED: carvediloL 6.25 MG TAB PO SCH (11:00)
[2021-08-14] MEDS ORDERED: RANOLAZINE ER 500 MG TAB 12HR PO SCH (11:00)
[2021-08-14] MEDS: POLYETHYLENE GLYCOL 3350 17 GM POWDER PO SCH (11:01)
--- NOTE | 2021-08-14 11:21 | Progress Note ---
Assessment and Plan Patient is a 66-year-old AA female with a hx of IN, CAD s/p PCI of OM1 in 2010, dilated CMP, CKDIII/IV, malignant HTN, and h/o ICH who presented with complaints of chest pain x 1 day. Chest Pain NSTEMI Hypertensive Urgency CAD s/p IN s/p PCI on OM1 (2010) Dilated CMP CKD III/IV HTN Hypothyroidism H/o ICH H/o Gastric Ulcer H/o Tobacco Use Elevated D-dimer (VQ scan low prob for PE 08/10/21) Echocardiogram 08/08/2021 - LVEF 45-50%. Mild LVH. Mild inferior wall hypokinesis. Normal RVSF. Aneurysmal atrial septum. Cardiac cath 08/14/2021-severe small vessel disease in the distal periapical LAD and third diagonal and small vessels. Proximal LAD, left main, mid LAD, left circumflex and right coronary artery without significant disease. No evidence of aortic stenosis. Mild global left ventricular hypokinesis. Echo 12/20/2020 - LVEF 25-30%. Inferior/inferolateral/anterolateral/inferior septal wall hypokinesis. Atrial septal aneurysm present without PFO. RA mildly dilated. RV mildly hypokinetic. Left Heart Cath 11/2016 - Normal sized left ventricle with normal contractility with patent stent in the obtuse marginal branch and also haziness and 50% lesion at the ostium of this vessel. Considering the angiographic pictures, it was felt that the patient can be continued on medical therapy. The lesion in the obtuse marginal branches is at the ostium and close to the main circumflex artery. This is a medium sized vessel. Previous evaluation by nuclear imaging showed evidence of scar in this area. Lexiscan Stress MPI 08/07/2021 - No evidence of reversible defects. Probable scar in the inferior and inferolateral area. Moderately decreased LVEF. Outpatient medications: ASA 325mg daily, Atorvastatin 80mg nightly, Lopressor 100mg TID, Clonidine 0.3mg TID, Amlodipine 10mg daily, Imdur 30mg daily, Hydralazine 25mg TID, HCTZ 25mg daily Plan: Cardiac cath showed patient to have small vessel disease. See report for full details Will initiate Ranexa 500 mg p.o. twice daily Patient noted to have frequent PVCs on monitor will initiate carvedilol 6.25 mg p.o. twice daily Continue ASA, high-intensity statin, CCB, & long-acting nitrates. Due to bradycardia and pause will stop clonidine for now Home cardiac medications listed above. Not on ACEI/ARB due to renal fxn. Continue Aldactone Cardiac status otherwise stable Recommend patient follow-up with nephrology as an outpatient to the renal function Patient has a follow-up appointment with Dr. Fuentes, [facility] campaign specialist, on 08/22/2021 at 8:45 AM at our [place] location. Pt see in conjunction with Dr. Fuentes, who agrees with the assessment and plan of care. - Patient Problems (1) CAD (coronary artery disease) Current Visit: No Status: Acute (2) Chest pain Current Visit: No Status: Acute (3) Gastroenteritis Current Visit: No Status: Acute (4) Hyperlipidemia Current Visit: No Status: Acute (5) Hypertension Current Visit: No Status: Acute (6) Renal insufficiency Current Visit: No Status: Acute Subjective Date of service: 08/14/21 Principal diagnosis: chest pain Interval history: Patient for cardiac cath this a.m. Sinus 80s to 90s with PVCs on monitor Objective Vital Signs Temp Pulse Resp BP BP Pulse Ox 08/14/21 10:35 165/111 08/14/21 10:18 173/109 08/14/21 10:17 173/109 08/14/21 09:45 103 H 12 187/123 97 08/14/21 09:40 106 H 180/111 08/14/21 09:30 99 H 14 180/111 97 08/14/21 09:17 98.4 F 99 H 14 180/121 92 08/14/21 04:50 18 08/14/21 04:42 98.6 F 111 H 18 146/90 94 08/14/21 02:36 20 08/13/21 22:55 98.2 F 105 H 18 133/86 97 08/13/21 22:16 18 95 08/13/21 21:34 96 08/13/21 20:39 107 H 08/13/21 19:53 98.7 F 94 H 20 130/84 90 08/13/21 19:46 18 08/13/21 17:07 99.2 F 107 H 18 138/90 94 08/13/21 13:31 99.0 F 97 H 18 127/89 99 08/13/21 12:00 90 - Physical Examination General: No Apparent Distress HEENT: Positive: EOMI, Normocephaly Neck: Positive: neck supple. Negative: JVD/HJR Cardiac: Positive: Reg Rate and Rhythm Lungs: Positive: Normal Breath Sounds Neuro: Positive: Grossly Intact Abdomen: Positive: Soft. Negative: Tender Skin: Negative: Rash Musculoskeletal: Normal Range of Motion, other (hip pain // sciatica) Extremities: Present: warm. Absent: edema - Labs and Meds Coagulation 08/14/21 Range/Units 04:55 PT 11.1 L (12.2-14.9) Sec. INR 0.73 L (0.87-1.13) CBC 08/14/21 Range/Units 04:55 WBC 6.6 (4.5-11.0) K/mm3 RBC 4.73 (3.65-5.03) M/mm3 Hgb 12.8 (10.1-14.3) gm/dl Hct 40.7 (30.3-42.9) % Plt Count 173 (140-440) K/mm3 Comprehensive Metabolic Panel 08/14/21 Range/Units 04:55 Sodium 135 L (137-145) mmol/L Potassium 3.9 D (3.6-5.0) mmol/L Chloride 102.8 (98-107) mmol/L Carbon Dioxide 21 L (22-30) mmol/L BUN 21 H (7-17) mg/dL Creatinine 1.6 H (0.6-1.2) mg/dL Glucose 123 H (65-100) mg/dL Calcium 10.5 H (8.4-10.2) mg/dL - Imaging and Cardiology EKG: report reviewed, image reviewed Echo: report reviewed Cardiac cath: report reviewed - Telemetry EKG Rhythm: Sinus Rhythm - EKG Sinus rhythms and dysrhythmias: sinus rhythm Ventricular dysrhythmias: ventricular premature com
--- NOTE | 2021-08-14 11:47 | Progress Note ---
Assessment and Plan Acute on CKD - Continue hydration including po fluids on d/c. Pt to f/u with Dr. Allan as outpt in 1wk CP - S/p Cath revealing small vessel disease, for medical Mx per Cardiology HTN - F/u on meds Subjective Date of service: 08/14/21 Principal diagnosis: chest pain Interval history: No new complaints, wants to go home today Objective - Vital Signs Vital signs: Vital Signs - 12hr 08/14/21 08/14/21 08/14/21 02:36 04:42 04:50 Temperature 98.6 F Pulse Rate 111 H Respiratory 20 18 18 Rate Blood Pressure Blood Pressure 146/90 [Right] O2 Sat by Pulse 94 Oximetry 08/14/21 08/14/21 08/14/21 09:17 09:30 09:40 Temperature 98.4 F Pulse Rate 99 H 99 H 106 H Respiratory 14 14 Rate Blood Pressure 180/121 180/111 180/111 Blood Pressure [Right] O2 Sat by Pulse 92 97 Oximetry 08/14/21 08/14/21 08/14/21 09:45 10:17 10:18 Temperature Pulse Rate 103 H Respiratory 12 Rate Blood Pressure 187/123 173/109 173/109 Blood Pressure [Right] O2 Sat by Pulse 97 Oximetry 08/14/21 10:35 Temperature Pulse Rate Respiratory Rate Blood Pressure 165/111 Blood Pressure [Right] O2 Sat by Pulse Oximetry - General Appearance General appearance: other (Awake & alert) EENT: PERRL, mucous membranes moist, hearing intact Neck: supple Respiratory: Present: Other (Good air entry) Cardiology: regular, S1S2 Gastrointestinal: normal Neurologic: alert and oriented x3 - Lab 08/14/21 04:55 08/14/21 04:55 Most recent lab results Calcium 10.5 mg/dL (8.4-10.2) H 08/14/21 04:55 Phosphorus 2.00 mg/dL (2.5-4.5) L 08/14/21 04:55 Magnesium 2.20 mg/dL (1.7-2.3) 08/14/21 04:55 Medications & Allergies - Medications Allergies/Adverse Reactions: Allergies blue dye Allergy (Verified 08/13/21 12:47) Vomiting Iodinated Contrast Media [Iodinated Contrast- Oral and IV Dye] Allergy (Verified 08/13/21 12:47) Vomiting DENIES ALLERGY TO ORAL CONTRAST DYE OR TO IODINE ON SKIN VEIN DYE Allergy (Uncoded 08/13/21 12:48) Vomiting Home Medications: Home Medications Medication Instructions Recorded Confirmed Last Taken Type AtorvaSTATin [Lipitor] 80 mg PO QHS 11/19/17 08/13/21 12/01/17 History hydrALAZINE [Apresoline TAB] 50 mg PO BID 30 Days #30 tablet 12/23/20 08/13/21 Unknown Rx ISOSORBIDE MONOnitrate [Imdur ER] 30 mg PO QDAY #30 tablet 08/08/21 08/13/21 Unknown Rx Spironolactone [Aldactone] 25 mg PO QDAY #30 tablet 08/08/21 08/13/21 Unknown Rx Aspirin EC [Ecotrin] 325 mg PO QDAY 08/13/21 08/13/21 Unknown History Furosemide [Lasix] 20 mg PO QDAY 08/13/21 08/13/21 Unknown History Gabapentin [Neurontin] 600 mg PO BID 08/13/21 08/13/21 Unknown History Levothyroxine [Synthroid] 150 mcg PO QAM 08/13/21 08/13/21 Unknown History Metoprolol [Lopressor] 100 mg PO TID 08/13/21 08/13/21 Unknown History Ondansetron [Zofran ODT TAB] 8 mg PO Q8HR PRN 08/13/21 08/13/21 Unknown History amLODIPine [Norvasc] 5 mg PO DAILY 08/13/21 08/13/21 Unknown History cloNIDine HCL [Clonidine HCl] 0.3 mg PO TID 08/13/21 08/13/21 Unknown History hydroCHLOROthiazide [HCTZ] 25 mg PO QDAY 08/13/21 08/13/21 Unknown History Active Medications: Generic Name Dose Route Start Last Admin Trade Name Freq PRN Reason Stop Dose Admin Acetaminophen 650 mg 08/10/21 17:20 08/13/21 13:33 Acetaminophen 325 Mg Tab PO 650 mg Q4H PRN Administration Pain MILD(1-3)/Fever >100.5/MANTILLA Hydrocodone Bitart/Acetaminophen 1 each 08/14/21 10:00 Hydrocodone/Acetaminophen 5-325 Mg Tab PO Q4H PRN Pain, Moderate (4-6) Albuterol 2.5 mg 06/12/22 17:20 Albuterol 2.5 Mg/3 Ml Nebu IH Q4HRT PRN Shortness Of Breath Amlodipine Besylate 10 mg 08/11/21 10:00 08/14/21 10:48 Amlodipine 10 Mg Tab PO 10 mg QDAY AKLE Administration Aspirin 81 mg 08/11/21 10:00 08/14/21 10:48 Aspirin 81 Mg Tab Chew PO 81 mg DAILY KALE Administration Atorvastatin Calcium 80 mg 08/10/21 22:00 08/13/21 21:27 Atorvastatin 40 Mg Tab PO 80 mg QHS KALE Administration Bisacodyl 10 mg 08/11/21 16:24 08/12/21 18:47 Bisacodyl 5 Mg Tab PO 10 mg QDAY PRN Administration Constipation Carvedilol 6.25 mg 08/14/21 11:00 08/14/21 11:27 Carvedilol 6.25 Mg Tab PO 6.25 mg BID KALE Administration Famotidine 10 mg 08/11/21 10:00 08/14/21 10:48 Famotidine 10 Mg Tab PO 10 mg BID KALE Administration Gabapentin 100 mg 08/13/21 22:00 08/13/21 21:27 Gabapentin 100 Mg Cap PO 100 mg QHS KALE Administration Hydralazine HCl 50 mg 08/10/21 22:00 08/14/21 10:49 Hydralazine 25 Mg Tab PO 50 mg BID KALE Administration Sodium Chloride 1,000 mls @ 100 mls/hr 08/12/21 10:30 08/14/21 01:25 Nacl 0.9% 1000 Ml IV 100 mls/hr DIRECT KALE Administration Isosorbide Mononitrate 30 mg 08/11/21 10:00 08/14/21 10:49 Isosorbide Mononitrate Er 30 Mg Tab PO 30 mg QDAY KALE Administration Levothyroxine Sodium 100 mcg 08/11/21 10:00 08/14/21 10:49 Levothyroxine 100 Mcg Tab PO 100 mcg DAILY KALE Administration Magnesium Hydroxide 30 ml 08/12/21 18:46 Magnesium Hydroxide (Mom) Oral Liqd Udc PO QDAY PRN Constipation Morphine Sulfate 2 mg 08/10/21 17:20 08/14/21 10:49 Morphine 4 Mg/1 Ml Inj IV 2 mg Q8H PRN Administration Pain , Severe (7-10) Nitroglycerin 0.4 mg 08/10/21 17:20 Nitroglycerin 0.4 Mg Tab Subl SL .Q5MIN PRN Chest Pain Ondansetron HCl 4 mg 08/10/21 17:20 08/13/21 18:22 Ondansetron 4 Mg/2 Ml Inj IV 4 mg Q8H PRN Administration Nausea And Vomiting Oxycodone/Acetaminophen 1 tab 08/10/21 17:20 08/14/21 04:50 Oxycodone /Acetaminophen 5-325mg Tab PO 1 tab Q6H PRN Administration Pain, Moderate (4-6) Polyethylene Glycol 17 gm 08/11/21 17:00 08/14/21 11:01 Polyethylene Glycol 3350 17 Gm Powder PO Not Given QDAY KALE Ranolazine 500 mg 08/14/21 11:00 08/14/21 11:27 Ranolazine Er 500 Mg Tab 12hr PO 500 mg BID KALE Administration Sodium Chloride 10 ml 08/10/21 22:00 08/14/21 10:49 Sodium Chloride 0.9% 10 Ml Flush Syringe IV 10 ml BID KALE Administration Sodium Chloride 10 ml 08/10/21 17:20 Sodium Chloride 0.9% 10 Ml Flush Syringe IV PRN PRN LINE FLUSH Spironolactone 25 mg 08/11/21 10:00 08/14/21 10:49 Spironolactone 25 Mg Tab PO 25 mg QDAY KALE Administration Tramadol HCl 50 mg 08/14/21 10:00 Tramadol 50 Mg Tab PO Q4H PRN Pain, Mild (1-3)
--- NOTE | 2021-08-14 12:08 | Discharge Summary ---
Providers - Providers Date of Admission: 08/10/21 17:20 Date of discharge: 08/14/21 Attending physician: BRAD WHITLEY 08/11/21 08:14 Consult to Physician [CONS] Routine Comment: Consulting Provider: MICHAEL FUENTES Physician Instructions: Reason For Exam: chest pain 08/11/21 10:00 Consult to Physician [CONS] Routine Comment: Consulting Provider: HILDA TOLLIVER Physician Instructions: Reason For Exam: mauro need cardiac cath 08/14/21 10:01 Consult to Cardiac Rehabilitation [CONS] Routine Reason For Exam: Cardiac Rehab Evaluation Primary care physician: [employer] [facility] Hospitalization Reason for admission: Chest pain Condition: Serious Pertinent studies: VQ scan low probability for PE Procedures: Lexiscan Stress MPI 08/07/2021 - No evidence of reversible defects. Probable scar in the inferior and inferolateral area. Moderately decreased LVEF. Cardiac cath 08/14/2021-severe small vessel disease in the distal periapical LAD and third diagonal and small vessels. Proximal LAD, left main, mid LAD, left circumflex and right coronary artery without significant disease. No evidence of aortic stenosis. Mild global left ventricular hypokinesis. Hospital course: -- NSTEMI (non-ST elevated myocardial infarction) ACS protocol: Serial cardiac enzymes, EKG, telemetry monitoring, serial EKG, cardiology team consulted. Patient pending cardiac cath in a.m. as per cardiology team. Pending nephrology evaluation morphine, supplemental oxygen, nitro, aspirin. -- Acute diastolic CHF Strict I/O, urine output every shift, daily weight, afterload reduction, blood pressure control, antiplatelet medications Echo LVEF 45 to 50%, 20 failure medications Cardiology following -- Elevated LFTs Supportive care, repeat LFT in AM. Probably due to liver congestion Due to underlying cause CHF Closely monitor -- Hyperlipidemia Statin therapy, low-cholesterol diet supportive care. -- Hypothyroidism- Continue Synthroid therapy, supportive care. -Elevated D-dimers low probability for PE on VQ scan Check lower extremity venous Doppler --Peripheral neuropathy; Continue gabapentin -constipation, Plenty of oral fluids, milk of magnesia, Dulcolax suppository Closely monitor Disposition: HOME / SELF CARE / HOMELESS Final Discharge Diagnosis (Prints w/discharge instructions): Non-ST elevation LA. Acute diastolic congestive heart failure. Elevated LFTs. Hyperlipidemia. Hypothyroidism. Peripheral neuropathy. Elevated D-dimers[negative PE]. peripheral neuropathy. Constipation improved Time spent for discharge: 40 min Core Measure Documentation - Palliative Care Palliative Care/ Comfort Measures: Not Applicable - Core Measures Any of the following diagnoses?: none Exam - Constitutional Vitals: Temp Pulse Resp BP Pulse Ox 98.4 F 103 H 12 165/111 97 08/14/21 09:17 08/14/21 09:45 08/14/21 09:45 08/14/21 10:35 08/14/21 09:45 Plan Activity: advance as tolerated Diet: other (Cardiac diet) Additional Instructions: If you have worsening symptoms contact MD or go to the nearest emergency room as needed. f/u cardiology, Dr. Fuentes, [facility] cycle specialist, on 08/22/2021 at 8:45 AM at our [place] location. Phone #[phone]. primary care physician, nephrology per schedule. Strongly advised to comply with medications, diet, follow-up visits. 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
[2021-08-14 17:07] VITALS: BP 134/95
== END 2021-08-14 18:51 | disposition home or self-care (01) | DRG 280 ==
LOC: ED 08:11 → 4A 17:20
PROVIDERS: ADMIT Internal Medicine; ATTEND Internal Medicine
PROC: 4A023N7 Measurement of Cardiac Sampling and Pressure, Left Heart, Percutaneous Approach (ICD-10-PCS; principal; 2021-08-14)
PROC: B2111ZZ Fluoroscopy of Multiple Coronary Arteries using Low Osmolar Contrast (ICD-10-PCS; 2021-08-14)
PROC: B2151ZZ Fluoroscopy of Left Heart using Low Osmolar Contrast (ICD-10-PCS; 2021-08-14)
DX: I21.4 Non-ST elevation (NSTEMI) myocardial infarction (principal); I50.31 Acute diastolic (congestive) heart failure; N17.0 Acute kidney failure with tubular necrosis; N18.4 Chronic kidney disease, stage 4 (severe); I13.0 Hypertensive heart and chronic kidney disease with heart failure and stage 1 through stage 4 chronic kidney disease, or unspecified chronic kidney disease; I42.0 Dilated cardiomyopathy; I16.0 Hypertensive urgency; E87.6 Hypokalemia; I25.10 Atherosclerotic heart disease of native coronary artery without angina pectoris; E03.9 Hypothyroidism, unspecified; Z87.891 Personal history of nicotine dependence; E78.2 Mixed hyperlipidemia; K59.00 Constipation, unspecified; G62.9 Polyneuropathy, unspecified; Z91.048 Other nonmedicinal substance allergy status; Z90.49 Acquired absence of other specified parts of digestive tract; Z79.82 Long term (current) use of aspirin; Z82.49 Family history of ischemic heart disease and other diseases of the circulatory system; Z91.041 Radiographic dye allergy status
CPT/HCPCS: 36415; 71045; 71046; 78580; 80048; 80053; 80061; 82962; 83735; 84100; 84484; 85014; 85018; 85025; 85027; 85049; 85379; 85520; 85610; 85730; 93005; 93458; 94640; 96374; 96375; G0378; J1815; J3490; A9540; C1769; C1894; J0360; J1200; J1644; J2250; J2270; J2405; J2930; J3010; J3480; J7030; J7040; Q9967